=== PATIENT | male | born 1990 | race Caucasian/White ===

== ENCOUNTER 2020-05-09 15:56 | Emergency (ER) | payer SELFPAY ==
--- NOTE | 2020-05-09 | CTR_ITS ---
PROCEDURE INFORMATION: Exam: CT Chest Without Contrast; Diagnostic Exam date and time: 05/09/2020 4:55 PM Age: 30 years old Clinical indication: Injury or trauma; Fall; Generalized; Blunt trauma (contusions or hematomas); Additional info: Fall 15 ft TECHNIQUE: Imaging protocol: Diagnostic computed tomography of the chest without contrast. Radiation optimization: All CT scans at this facility use at least one of these dose optimization techniques: automated exposure control; mA and/or kV adjustment per patient size (includes targeted exams where dose is matched to clinical indication); or iterative reconstruction. COMPARISON: CT Abdomen/Pelvis Renal [id number] 10/15/2018 10:31 PM RADIATION DOSE METRICS: Total DLP (mGy-cm): 1284.88 FINDINGS: Lungs: There is some dependent atelectasis at the right lung base. There is a small calcified granuloma in the left upper lobe. Pleural spaces: Unremarkable. No pneumothorax. No pleural effusion. Heart: Unremarkable. No cardiomegaly. No pericardial effusion. Aorta: Unremarkable. No aortic aneurysm. Lymph nodes: There is some calcified mediastinal lymph nodes in keeping with old granulomatous disease. Bones/joints: Unremarkable. No acute fracture. Soft tissues: Unremarkable. IMPRESSION: No acute findings. PROCEDURE INFORMATION: Exam: CT Abdomen And Pelvis Without Contrast Exam date and time: 05/09/2020 4:55 PM Age: 30 years old Clinical indication: Injury or trauma; Fall; Generalized; Blunt trauma (contusions or hematomas); Additional info: Fall 15 ft TECHNIQUE: Imaging protocol: Computed tomography of the abdomen and pelvis without contrast. Radiation optimization: All CT scans at this facility use at least one of these dose optimization techniques: automated exposure control; mA and/or kV adjustment per patient size (includes targeted exams where dose is matched to clinical indication); or iterative reconstruction. COMPARISON: CT Abdomen/Pelvis Renal [id number] 10/15/2018 10:31 PM RADIATION DOSE METRICS: Total DLP (mGy-cm): 1284.88 FINDINGS: Limitations: The absence of intravenous contrast lessens the sensitivity of this study for solid organ abnormalities. Liver: There is no focal abnormality within the liver. Gallbladder and bile ducts: The gallbladder is normal. Pancreas: The pancreas is normal. Spleen: The spleen is normal. Adrenal glands: The adrenal glands are normal. Kidneys and ureters: The kidneys are normal. There is no evidence of hydronephrosis. There is no evidence of renal or ureteral calcifications. Stomach and bowel: There is no evidence of colitis/diverticulitis. Appendix: Not Identified Intraperitoneal space: There is no evidence of free intraperitoneal fluid. Vasculature: The aorta is normal. Lymph nodes: Unremarkable. No enlarged lymph nodes. Urinary bladder: Unremarkable as visualized. Reproductive: Unremarkable as visualized. Bones/joints: Unremarkable. No acute fracture. Soft tissues: Unremarkable. CT/CT chest abd pel wo con IMPRESSION: No acute findings. Radiation Dose CTDIVOL = (mGy): DLP = 1284.88~1284.88 (mGy-cm)
[2020-05-09 16:28] VITALS: BP 130/80; PULSE 83; RESP 16; TEMP 36.2; O2SAT 97; BMI 21.0
--- NOTE | 2020-05-09 16:38 | CTR_ITS ---
PROCEDURE INFORMATION: Exam: CT Cervical Spine Without Contrast Exam date and time: 05/09/2020 4:43 PM Age: 30 years old Clinical indication: Injury or trauma; Fall; Blunt trauma; Additional info: 15 ft fall TECHNIQUE: Imaging protocol: Computed tomography images of the cervical spine without contrast. Axial, coronal and sagittal reformatted images were created and reviewed. Radiation optimization: All CT scans at this facility use at least one of these dose optimization techniques: automated exposure control; mA and/or kV adjustment per patient size (includes targeted exams where dose is matched to clinical indication); or iterative reconstruction. COMPARISON: CT Cervical Spine wo* [id number] 04/27/2014 9:26 PM RADIATION DOSE METRICS: Total DLP (mGy-cm): 618.16 FINDINGS: Bones/joints: Mild straightening of the normal cervical lordosis. No CT evidence of acute fracture, dislocation or subluxation. Alignment anatomic. Mild levoscoliosis. Vertebral body heights maintained. Discs/Spinal canal/Neural foramina: Intervertebral disc spaces preserved. No significant spinal canal or neural foraminal stenosis. Lungs: Grossly unremarkable. Soft tissues: Grossly unremarkable. CT/CT cervical spin wo con* [id number] IMPRESSION: 1. No CT evidence of acute cervical spine traumatic injury. 2. Additional findings, as above. Radiation Dose CTDIVOL = (mGy): DLP = 618.16 (mGy-cm)
--- NOTE | 2020-05-09 16:38 | CTR_ITS ---
PROCEDURE INFORMATION: Exam: CT Head Without Contrast Exam date and time: 05/09/2020 4:43 PM Age: 30 years old Clinical indication: Injury or trauma; Fall; Blunt trauma (contusions or hematomas); Without loss of consciousness; Additional info: Trauma; 15 ft fall TECHNIQUE: Imaging protocol: Computed tomography of the head without contrast. Axial, coronal and sagittal reformatted images were created and reviewed. Radiation optimization: All CT scans at this facility use at least one of these dose optimization techniques: automated exposure control; mA and/or kV adjustment per patient size (includes targeted exams where dose is matched to clinical indication); or iterative reconstruction. COMPARISON: CT head wo con* [id number] 04/27/2014 9:22 PM RADIATION DOSE METRICS: Total DLP (mGy-cm): 891.24 FINDINGS: Brain: No CT evidence of acute intracranial hemorrhage or acute territorial infarction. No significant mass effect or midline shift. Basal cisterns patent. Cerebral ventricles: Normal in size and configuration. Bones/joints: No acute osseous abnormality. Paranasal sinuses: Minimal ethmoid mucosal thickening. Mastoid air cells: Grossly unremarkable. Soft tissues: Grossly unremarkable. CT/CT head wo con* [id number] IMPRESSION: 1. No CT evidence of acute intracranial pathology. 2. Additional findings, as above. Radiation Dose CTDIVOL = (mGy): DLP = 891.24 (mGy-cm)
--- NOTE | 2020-05-09 16:38 | CTR_ITS ---
PROCEDURE INFORMATION: Exam: CT Lumbar Spine Without Contrast Exam date and time: 05/09/2020 4:43 PM Age: 30 years old Clinical indication: Injury or trauma; Fall; Blunt trauma (contusions or hematomas); Additional info: 15 ft fall TECHNIQUE: Imaging protocol: Computed tomography images of the lumbar spine without contrast. Radiation optimization: All CT scans at this facility use at least one of these dose optimization techniques: automated exposure control; mA and/or kV adjustment per patient size (includes targeted exams where dose is matched to clinical indication); or iterative reconstruction. COMPARISON: No relevant prior studies available. RADIATION DOSE METRICS: Total DLP (mGy-cm): 1615.39 FINDINGS: Vertebrae: No acute fracture. Normal alignment. Discs/Spinal canal/Neural foramina: No significant disc protrusion. No severe spinal canal stenosis. No significant neural foraminal narrowing. Soft tissues: Unremarkable. CT/CT lumbar spine wo con* [id number] IMPRESSION: No acute findings. Radiation Dose CTDIVOL = (mGy): DLP = 1615.39 (mGy-cm)
[2020-05-09 17:28] VITALS: BP 123/67; PULSE 80; RESP 18; O2SAT 97
--- NOTE | 2020-05-09 19:09 | ED_ITS ---
HPI - Trauma General: Chief Complaint: Trauma Stated Complaint: FELL OFF LADDER Time Seen by Provider: 05/09/20 16:53 Source: patient Mode of arrival: ambulatory Limitations: no limitations History of Present Illness: HPI narrative: 30-year-old male who fell off a ladder that was about 15 feet high. Landed on his buttocks and complains of tailbone pain. He has pain going down to his legs. He was able to ambulate though without difficulty. He also complains of some neck pain and blurry vision. He denies hitting his head or losing consciousness. MD complaint: fall Loss of Consciousness: no Location: neck and buttocks Severity: severe Context: fall Associated symptoms: Reports back pain and visual disturbances; Denies Unable to assess gait, abdominal pain, anorexia, chest pain, chills, confusion, cough, dental pain, diaphoresis, difficulty breathing, dizziness, epistaxis, fever(s), headache(s), nausea, seizures, short of breath, syncope or vomiting Review of Systems General: Reports: 10 or more systems reviewed and unremarkable except in HPI a nd below Const: Denies: fever(s), chills or diaphoresis Eyes: Denies: change in vision or blurry vision ENMT: Denies: dental pain or epistaxis Card: Denies: chest pain or syncope Resp: Denies: dyspnea, productive cough or non-productive cough GI: Denies: abdominal pain, nausea or vomiting : Denies: flank pain, dysuria, urinary frequency, urinary urgency or urinary hesitancy Musc: Reports: back pain Skin/Breast: Denies: rash, pruritus or erythema Neuro: Denies: headache(s), dizziness or confusion Endo: Denies: polyuria, polydipsia or tired all the time PFS ED PFSH: Social History (Reviewed 05/11/20 @ 11:09 by Sabrina Kenney MD, [facility] – [place]) Smoking and tobacco status: current every day smoker cigarettes Packs smoked per day: 0.5 Alcohol intake: never Substance/Drug Use: never Physical Exam Const: COMMON NORMALS: no acute distress, average body habitus, patient oriented x3, no limitations, healthy appearing, alert and well nourished HENMT: COMMON NORMALS: normocephalic, atraumatic and moist oral mucous membranes HEAD & SCALP: normocephalic and atraumatic Eye: COMMON NORMALS: Equal, round and reactive pupils present, EOMs intact bilaterally, conjunctivae normal and no scleral icterus CONJUNCTIVA: Yes conjunctivae normal PUPIL: Yes Equal, round and reactive pupils present Neck/C-Spine: COMMON NORMALS: full ROM, supple, no meningeal signs, no JVD and No carotid bruits CERVICAL SPINE: No Cervical spine tenderness Chest: COMMONS NORMALS: normal inspection of the chest and normal palpation of entire chest wall Resp: COMMON NORMALS: normal respiratory effort, No retractions, No use of accessory muscles, clear to auscultation bilaterally and percussion normal AUSCULTATION: clear to auscultation bilaterally PERCUSSION: percussion normal Cardio: COMMON NORMALS: no JVD, regular rate, regular rhythm, S1 normal heart sound present, S2 normal heart sound present, No gallops present (Cardio), No clicks present (Cardio), No murmurs present (Cardio), No rub (Cardio) and Peripheral pulses 2+ throughout RATE: regular rate RHYTHM: regular rhythm HEART SOUNDS: S1 normal heart sound present and S2 normal heart sound present PERIPHERAL PULSES: Peripheral pulses 2+ throughout GI: COMMON NORMALS: Normal to inspection, nondistended, normoactive bowel sounds present, Soft to palpation, non-tender, No hepatosplenomegaly present, no masses and no bruits PALPATION: Yes Soft to palpation and Yes No hepatosplenomegaly present : COMMON NORMALS: Yes no CVA tenderness BLADDER/KIDNEY EXAM: Yes no CVA tenderness Back/Pelvis: COMMON NORMALS: no CVA tenderness THORACIC SPINE/UPPER BACK: No thoracic spinal tenderness LUMBAR SPINE/LOWER BACK: No lumbar spinal tenderness SACRUM: no swelling and tenderness Extremity: COMMON NORMALS: normal to inspection, full ROM, capillary refill normal, no calf tenderness and no pedal edema Neuro: COMMON NORMALS: patient oriented x3 SENSORIUM/ORIENTATION: Yes alert MENINGEAL SIGNS: Yes no meningeal signs GAIT: No Unable to assess gait Skin: COMMON NORMALS: no rashes or lesions noted, no wounds, turgor normal, no jaundice, no petechiae and no mottling GENERAL SKIN EXAM: no rashes or lesions noted and turgor normal MDM - Trauma MDM Narrative: Medical decision making narrative: 30-year-old male who fell from a height of about 15 feet earlier today. He complained of tailbone pain which is still his predominant complaint. Evaluation in the ED ED is negative for acute fracture or dislocation. Negative head CT, C-spine CT, chest abdomen and pelvis CT and lumbar spine CT. He is discharged home on conservative measures. Medical Records: Attestation: I reviewed the patient's medical records. Imaging Data^: Other CT: Attestation: I personally reviewed and interpreted this imaging study as follows: Radiologist's impression: [employer] [facility] [address] [address] Scan Report Signed Patient: Lacey Clark #: [id number] : 1990Acct#:[id number] Age/Sex: 30 / MADM Date: 05/09/20 Loc: ERRoom/Bed: Attending Dr: Ordering Provider/Ordering MD: Gianna Schmid Date of Service: 05/09/20 Procedure(s): CT cervical spin wo con* [id number] Accession Number(s): [id number] Report Number: [id number] PROCEDURE INFORMATION: Exam: CT Cervical Spine Without Contrast Exam date and time: 05/09/2020 4:43 PM Age: 30 years old Clinical indication: Injury or trauma; Fall; Blunt trauma; Additional info: 15 ft fall TECHNIQUE: Imaging protocol: Computed tomography images of the cervical spine without contrast. Axial, coronal and sagittal reformatted images were created and reviewed. Radiation optimization: All CT scans at this facility use at least one of these dose optimization techniques: automated exposure control; mA and/or kV adjustment per patient size (includes targeted exams where dose is matched to clinical indication); or iterative reconstruction. COMPARISON: CT Cervical Spine wo* [id number] 04/27/2014 9:26 PM RADIATION DOSE METRICS: Total DLP (mGy-cm): 618.16 FINDINGS: Bones/joints: Mild straightening of the normal cervical lordosis. No CT evidence of acute fracture, dislocation or subluxation. Alignment anatomic. Mild levoscoliosis. Vertebral body heights maintained. Discs/Spinal canal/Neural foramina: Intervertebral disc spaces preserved. No significant spinal canal or neural foraminal stenosis. Lungs: Grossly unremarkable. Soft tissues: Grossly unremarkable. CT/CT cervical spin wo con* [id number] IMPRESSION: 1. No CT evidence of acute cervical spine traumatic injury. 2. Additional findings, as above. Radiation Dose CTDIVOL = (mGy): DLP = 618.16 (mGy-cm) Dictated By:Cuco Lambert MD Signed By:Cuco Lambertigned Date/Time:05/09/201731 DD/ [address] [facility] [address] [address] Scan Report Signed Patient: Lacey Clark #: [id number] : 1990Acct#:[id number] Age/Sex: 30 / MADM Date: 05/09/20 Loc: ERRoom/Bed: Attending Dr: Ordering Provider/Ordering MD: Gianna Shcmid Date of Service: 05/09/20 Procedure(s): CT lumbar spine wo con* [id number] Accession Number(s): [id number] Report Number: [id number] PROCEDURE INFORMATION: Exam: CT Lumbar Spine Without Contrast Exam date and time: 05/09/2020 4:43 PM Age: 30 years old Clinical indication: Injury or trauma; Fall; Blunt trauma (contusions or hematomas); Additional info: 15 ft fall TECHNIQUE: Imaging protocol: Computed tomography images of the lumbar spine without contrast. Radiation optimization: All CT scans at this facility use at least one of these dose optimization techniques: automated exposure control; mA and/or kV adjustment per patient size (includes targeted exams where dose is matched to clinical indication); or iterative reconstruction. COMPARISON: No relevant prior studies available. RADIATION DOSE METRICS: Total DLP (mGy-cm): 1615.39 FINDINGS: Vertebrae: No acute fracture. Normal alignment. Discs/Spinal canal/Neural foramina: No significant disc protrusion. No severe spinal canal stenosis. No significant neural foraminal narrowing. Soft tissues: Unremarkable. CT/CT lumbar spine wo con* [id number] IMPRESSION: No acute findings. Radiation Dose CTDIVOL = (mGy): DLP = 1615.39 (mGy-cm) Dictated By:Noe Matson Signed By:Melchor Matsonigned Date/Time:05/09/201733 DD/ 1732 CT Chest: Attestation: I personally reviewed and interpreted this imaging study as follows: Radiologist's impression: [address] [address] [address] Scan Report Signed Patient: Lacey Clark #: [id number] : 1990Acct#:[id number] Age/Sex: 30 / MADM Date: 05/09/20 Loc: ERRoom/Bed: Attending Dr: Ordering Provider/Ordering MD: Sabrina Kenney MD, [facility] [place] Date of Service: 05/09/20 Procedure(s): CT chest abd pel wo con Accession Number(s): [id number] Report Number: [id number] PROCEDURE INFORMATION: Exam: CT Chest Without Contrast; Diagnostic Exam date and time: 05/09/2020 4:55 PM Age: 30 years old Clinical indication: Injury or trauma; Fall; Generalized; Blunt trauma (contusions or hematomas); Additional info: Fall 15 ft TECHNIQUE: Imaging protocol: Diagnostic computed tomography of the chest without contrast. Radiation optimization: All CT scans at this facility use at least one of these dose optimization techniques: automated exposure control; mA and/or kV adjustment per patient size (includes targeted exams where dose is matched to clinical indication); or iterative reconstruction. COMPARISON: CT Abdomen/Pelvis Renal [id number] 10/15/2018 10:31 PM RADIATION DOSE METRICS: Total DLP (mGy-cm): 1284.88 FINDINGS: Lungs: There is some dependent atelectasis at the right lung base. There is a small calcified granuloma in the left upper lobe. Pleural spaces: Unremarkable. No pneumothorax. No pleural effusion. Heart: Unremarkable. No cardiomegaly. No pericardial effusion. Aorta: Unremarkable. No aortic aneurysm. Lymph nodes: There is some calcified mediastinal lymph nodes in keeping with old granulomatous disease. Bones/joints: Unremarkable. No acute fracture. Soft tissues: Unremarkable. IMPRESSION: No acute findings. PROCEDURE INFORMATION: Exam: CT Abdomen And Pelvis Without Contrast Exam date and time: 05/09/2020 4:55 PM Age: 30 years old Clinical indication: Injury or trauma; Fall; Generalized; Blunt trauma (contusions or hematomas); Additional info: Fall 15 ft TECHNIQUE: Imaging protocol: Computed tomography of the abdomen and pelvis without contrast. Radiation optimization: All CT scans at this facility use at least one of these dose optimization techniques: automated exposure control; mA and/or kV adjustment per patient size (includes targeted exams where dose is matched to clinical indication); or iterative reconstruction. COMPARISON: CT Abdomen/Pelvis Renal [id number] 10/15/2018 10:31 PM RADIATION DOSE METRICS: Total DLP (mGy-cm): 1284.88 FINDINGS: Limitations: The absence of intravenous contrast lessens the sensitivity of this study for solid organ abnormalities. Liver: There is no focal abnormality within the liver. Gallbladder and bile ducts: The gallbladder is normal. Pancreas: The pancreas is normal. Spleen: The spleen is normal. Adrenal glands: The adrenal glands are normal. Kidneys and ureters: The kidneys are normal. There is no evidence of hydronephrosis. There is no evidence of renal or ureteral calcifications. Stomach and bowel: There is no evidence of colitis/diverticulitis. Appendix: Not Identified Intraperitoneal space: There is no evidence of free intraperitoneal fluid. Vasculature: The aorta is normal. Lymph nodes: Unremarkable. No enlarged lymph nodes. Urinary bladder: Unremarkable as visualized. Reproductive: Unremarkable as visualized. Bones/joints: Unremarkable. No acute fracture. Soft tissues: Unremarkable. CT/CT chest abd pel wo con IMPRESSION: No acute findings. Radiation Dose CTDIVOL = (mGy): DLP = 1284.88~1284.88 (mGy-cm) Dictated By:Noe Matson Signed By:Jostin Matson Date/Time:05/09/201743 DD/ 41 CT Head: Attestation: I personally reviewed and interpreted this imaging study as follows: Radiologist's impression: [address] [place] [address] CT Scan Report Signed Patient: Lacey Clark #: [id number] : 1990Acct#:[id number] Age/Sex: 30 / MADM Date: 05/09/20 Loc: ERRoom/Bed: Attending Dr: Ordering Provider/Ordering MD: Gianna Schmid Date of Service: 05/09/20 Procedure(s): CT head wo con* [id number] Accession Number(s): [id number] Report Number: [id number] PROCEDURE INFORMATION: Exam: CT Head Without Contrast Exam date and time: 05/09/2020 4:43 PM Age: 30 years old Clinical indication: Injury or trauma; Fall; Blunt trauma (contusions or hematomas); Without loss of consciousness; Additional info: Trauma; 15 ft fall TECHNIQUE: Imaging protocol: Computed tomography of the head without contrast. Axial, coronal and sagittal reformatted images were created and reviewed. Radiation optimization: All CT scans at this facility use at least one of these dose optimization techniques: automated exposure control; mA and/or kV adjustment per patient size (includes targeted exams where dose is matched to clinical indication); or iterative reconstruction. COMPARISON: CT head wo con* [id number] 04/27/2014 9:22 PM RADIATION DOSE METRICS: Total DLP (mGy-cm): 891.24 FINDINGS: Brain: No CT evidence of acute intracranial hemorrhage or acute territorial infarction. No significant mass effect or midline shift. Basal cisterns patent. Cerebral ventricles: Normal in size and configuration. Bones/joints: No acute osseous abnormality. Paranasal sinuses: Minimal ethmoid mucosal thickening. Mastoid air cells: Grossly unremarkable. Soft tissues: Grossly unremarkable. CT/CT head wo con* [id number] IMPRESSION: 1. No CT evidence of acute intracranial pathology. 2. Additional findings, as above. Radiation Dose CTDIVOL = (mGy): DLP = 891.24 (mGy-cm) Dictated By:Cuco Lambert MD Signed By:Cuco Lambert MDSigned Date/Time:05/09/201730 DD/ 28 Discharge Plan Discharge Patient Disposition: Home Clinical Impression: Sacral pain Fall from ladder Qualifiers: Encounter type: initial encounter Qualified Code(s): W11.XXXA - Fall on and from ladder, initial encounter Condition: Stable Prescriptions: [place] 5-325 mg tablet 1 tab PO Q8H PRN (Reason: pain) Qty: 12 RF: 0 Continued cetirizine 10 mg Tablet 10 mg PO DAILY RF: 0 Discharge Orders: Discharge ED (Routine); Ordered 05/09/20 Ordered By: Sabrina Kenney Discharge Diet: Usual diet Discharge Activity: Increase activity as tolerated Patient Instructions: Fall Prevention (ED), Opioid Safety Activity Restrictions/Additional Instructions: Return for any new or worsening symptoms. Follow-up with your primary care provider within 3 days. Your pain is going to get worse over the next few days before it starts to get better. Take ibuprofen for mild to moderate pain and his pain medication for severe pain. 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
[2020-05-09 19:50] VITALS: BP 125/83; PULSE 65; RESP 18; O2SAT 98
== END 2020-05-09 19:50 | disposition home or self-care (01) ==
PROVIDERS: Emergency Provider Family Medicine
DX: M53.3 Sacrococcygeal disorders, not elsewhere classified (principal); W11.XXXA Fall on and from ladder, initial encounter; F17.210 Nicotine dependence, cigarettes, uncomplicated
CPT/HCPCS: 70450; 71250; 72125; 72131; 74176; 99283

== ENCOUNTER 2021-02-03 15:11 | Emergency (ER) | payer SELFPAY ==
[2021-02-03 15:25] VITALS: BP 127/77; PULSE 76; RESP 16; TEMP 36.9; O2SAT 99; BMI 22.5
--- NOTE | 2021-02-03 17:51 | ECG_ITS ---
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 [email or web address]
== END 2021-02-03 17:50 | disposition left against medical advice (07) ==
PROVIDERS: Emergency Provider Emergency Medicine
DX: Z53.21 Procedure and treatment not carried out due to patient leaving prior to being seen by health care provider (principal)
CPT/HCPCS: 93005; 99282

== ENCOUNTER → 2021-02-04 15:52 | Outpatient (BNVA) | payer SELFPAY | PROVIDERS: Visit Provider Registered Nurse Neonatal Intensive Care | DX: R10.9 Unspecified abdominal pain (principal); K25.3 Acute gastric ulcer without hemorrhage or perforation | CPT/HCPCS: 81000 ==

== ENCOUNTER 2021-02-06 09:34 | Emergency (ER) | payer SELFPAY ==
[2021-02-06 09:58] VITALS: BP 120/74; PULSE 62; RESP 19; TEMP 36.8; O2SAT 99; BMI 21.9
[2021-02-06 11:11] VITALS: BP 134/92; PULSE 56; RESP 12; TEMP 36.3; O2SAT 99
--- NOTE | 2021-02-06 11:19 | CT_ITS ---
WS: [id number] CT ABDOMEN PELVIS TECHNIQUE: Contrast-enhanced CT of the abdomen and pelvis with coronal and sagittal reformatted image s. CLINICAL INFORMATION: ruq abdominal pain COMPARISON: May 09, 2020 DLP: 1170.[address] scans at [facility] use at least one of these dose optimization techniques: automated e xposure control; mA and/or kV adjustment per patient size (includes targeted exams where dose is matc hed to clinical indication); or iterative reconstruction. FINDINGS: Mild diffuse fatty infiltration liver. Normal gallbladder. Normal portal vein and splenic vein. Natalia l pancreas. Normal spleen and GE junction. Lung bases are well aerated. Normal renal parenchymal enhancement. No hydronephrosis. Tiny fat-containing umbilical hernia. No herniated bowel. Mild to moderate rectosigmoid constipation. No evidence of high-grade small or obstruction. Normal appendix in the right lower quadrant. No evid ence of acute appendicitis. No free fluid in the abdomen or pelvis. Normal caliber abdominal aorta. Normal lumbar spine. CT/CT abdomen pelvis w con* [id number] IMPRESSION: 1. Normal appendix in the right lower quadrant. No evidence of acute appendici tis. 2. Mild diffuse fatty infiltration liver. Gallbladder appears normal. 3. Normal renal parenchymal enhancement. No hydronephrosis. 4. Moderate pancolonic and rectosigmoid constipation. No evidence of high-grad e small or large bowel obstruction. 5. Normal caliber abdominal aorta. 6. Tiny fat-containing umbilical hernia. No herniated bowel.
[2021-02-06 11:41] LABS: Basophils % 0.9 %; Eosinophils # 0.2 10^3/uL (0.0-0.8); Hematocrit 44.7 % (42.0-52.0); Lymphocytes % 22.4 %; Mean Corpuscular HGB Conc 33.6 g/dL (30.0-36.0); Mean Corpuscular Hemoglobin 31.4 pg (28.0-34.0); Mean Corpuscular Volume 93.7 fl (80-94); Mean Platelet Volume 10.4 fL (7.4-10.4); Monocytes # 0.4 10^3/uL (0.2-0.9); Monocytes % 8.2 %; Neutrophils # 2.79 10^3/uL (1.8-7.7); Neutrophils % 63.3 %; Nucleated Red Blood Cells % 0 %; Platelet Count 268 10^3/cmm (130-400); Red Blood Count 4.77 10^6/uL (4.1-5.3); Red Cell Distribution Width 12.1 % (12.1-15.1); White Blood Count 4.4 10^3/uL (4.0-10.0)
[2021-02-06] MEDS: ketorolac 30 mg/mL INJ IVP (11:54)
[2021-02-06] MEDS: ondansetron 2 mg/ML SDV 2 mL 4 MG IVP (11:54)
[2021-02-06] MEDS: sodium chloride 0.9% 1,000 ML 999 ML IV (11:56)
[2021-02-06 12:04] LABS: Alanine Aminotransferase 23 U/L (0-41); Albumin Level 4.6 g/dL (3.5-5.2); Alkaline Phosphatase 77 IU/L (40-130); Aspartate Amino Transferase 18 U/L (0-40); Blood Urea Nitrogen 18 mg/dL (6-20); C Reactive Protein 1.5 mg/L (0.0-4.9); Calcium 8.9 mg/dL (8.5-10.5); Carbon Dioxide 25 mmol/L (22-29); Chloride 105 mmol/L (98-107); Globulin 1.9 g/dL (1.3-4.6); Glomerular Filtration Rate 99.1 mL/min (90-130); Glucose 84 mg/dL (65-115); Lipase 19 U/L (13-60); Osmolality Calculated 297 mOsm/kg (285-295); Sodium 143 mmol/L (136-145); Total Bilirubin 0.4 mg/dL (0.15-1.2); Total Protein 6.5 g/dL (6.6-8.7)
[2021-02-06] MEDS: iodixanol 320 mg/mL 100mL Btl IV (12:18)
--- NOTE | 2021-02-06 13:18 | ED_ITS ---
HPI - Abdominal Pain General: Chief Complaint: Abdominal Pain Stated Complaint: ABD PAIN/SEEN @ [facility] [place] 11.30,SX INCREASED SINCE MED Time Seen by Provider: 02/06/21 10:58 Source: patient History of Present Illness: HPI narrative: 30-year-old male presents emergency department chief complaint having right-sided abdominal pain after eating his Thanksgiving turkey meal over week ago he reports cramping abdominal pain reports he has been having some diarrhea with this no blood in his stool reports mild nausea no emesis reports no fevers or chills. He reports that he has had no pre-existing abdominal surgery does report as a child he had a hernia repair MD elicited complaint: abdominal pain Pertinent past history: other (Diarrhea) Onset (ago): day(s) (10) Pain Consistency: intermittent and colicky Location: Diffuse, RUQ and RLQ Severity: moderate Quality: cramping Migration to: periumbilical Relieving factors: nothing Associated Symptoms: Reports anorexia, change in bowel habits, diarrhea and nausea; Denies chills and fever(s) Review of Systems General: Reports: 10 or more systems reviewed and unremarkable except in HPI and below Const: Denies: fever(s), chills, fatigue or malaise Eyes: Denies: change in vision or blurry vision Card: Denies: chest pain or palpitations Resp: Denies: dyspnea or productive cough GI: Reports: abdominal pain, nausea, diarrhea and change in bowel habits : Denies: flank pain Musc: Denies: extremity pain or extremity swelling Skin/Breast: Denies: rash or pruritus Neuro: Denies: headache(s) Psych: Denies: anxiety or depression Travis/Lymph: Denies: easy bleeding All/Imm: Denies: urticaria, throat swelling or facial swelling PFS ED PFSH: Social History Smoking and tobacco status: current every day smoker cigarettes Packs smoked per day: 0.5 Alcohol intake: never Physical Exam Narrative: EXAM NARRATIVE: Patient appears nontoxic appears in mild distress due to his pain otherwise unremarkable Const: COMMON NORMALS: no acute distress, patient oriented x3 and healthy appearing HENMT: COMMON NORMALS: normocephalic and atraumatic HEAD & SCALP: normocephalic and atraumatic Eye: COMMON NORMALS: Equal, round and reactive pupils present and EOMs intact bilaterally PUPIL: Yes Equal, round and reactive pupils present Neck/C-Spine: COMMON NORMALS: full ROM, supple and no JVD Lymph: LYMPHATIC: no lymphadenopathy noted Chest: COMMONS NORMALS: normal inspection of the chest and normal palpation of entire chest wall Resp: COMMON NORMALS: normal respiratory effort, No retractions and clear to auscultation bilaterally EFFORT & INSPECTION: Yes able to speak in complete sentences and Yes symmetric chest movement AUSCULTATION: clear to auscultation bilaterally Cardio: COMMON NORMALS: no JVD, regular rate and regular rhythm RATE: regular rate RHYTHM: regular rhythm GI: COMMON NORMALS: Normal to inspection, nondistended, normoactive bowel sounds present INSPECTION: Yes normal to inspection PALPATION: Yes Tend erness to palpation present (GI) Details: RLQ (Moderate tenderness noted to the right upper quadrant and right lower quadrant on exam negative Dae's point tenderness noted) and RUQ : COMMON NORMALS: Yes no CVA tenderness BLADDER/KIDNEY EXAM: Yes no CVA tenderness Back/Pelvis: COMMON NORMALS: no CVA tenderness Extremity: COMMON NORMALS: normal to inspection and full ROM Neuro: COMMON NORMALS: patient oriented x3, CN's II-XII intact bilaterally, moves all extremities and no focal motor deficits Psych: COMMON NORMALS: mental status grossly normal, Normal thought process present, cooperative and normal affect THOUGHT PROCESS: Normal thought process present Skin: COMMON NORMALS: no rashes or lesions noted GENERAL SKIN EXAM: no rashes or lesions noted Course ED course: Due to patient's symptoms and condition lab work imaging will be obtained we will continue to follow this lab work came back unremarkable this revealing some mild constipation patient was started on additional occasions for this advised further follow-up primary care in 2 to 3 days which was advised to return the interim if any of his symptoms persist or worse. Vital Signs: Vital signs: Vital Signs Temperature 97.3 F L 02/06/21 11:11 Pulse Rate 56 L 02/06/21 11:11 Respiratory Rate 12 02/06/21 11:11 Blood Pressure 134/92 02/06/21 11:11 Pulse Oximetry 99 02/06/21 11:11 MDM - Abdominal Pain Differential Diagnosis: Differential diagnosis abdominal pain: Likely abdominal pain, acute appendicitis, constipation and pancreatitis Medical Records: Attestation: I reviewed the patient's medical records. Lab Data: Attestation: I reviewed the patient's lab results. Labs: Lab Results 02/06/21 02/06/21 10:30 10:30 WBC 4.4 10^3/uL 10^3/ uL (4.0-10.0) RBC 4.77 10^6/uL 10^6 /uL (4.1-5.3) Hgb 15.0 g/dL g/dL (11.7-16.6) Hct 44.7 % % (42.0-52.0) MCV 93.7 fl fl (80-94) MCH 31.4 pg pg (28.0-34.0) MCHC 33.6 g/dL g/dL (30.0-36.0) RDW 12.1 % % (12.1-15.1) Plt Count 268 10^3/cmm 10^3 /cmm (130-400) MPV 10.4 fL fL (7.4-10.4) Neut % (Auto) 63.3 % % Lymph % (Auto) 22.4 % % [place] % (Auto) 8.2 % % Eos % (Auto) 5.0 % % Baso % (Auto) 0.9 % % Neut # (Auto) 2.79 10^3/uL 10^3 /uL (1.8-7.7) Lymph # (Auto) 1.0 10^3/uL 10^3/ uL (0.8-4.8) [place] # (Auto) 0.4 10^3/uL 10^3/ uL (0.2-0.9) Eos # (Auto) 0.2 10^3/uL 10^3/ uL (0.0-0.8) Baso # (Auto) 0.0 10^3/uL 10^3/ uL (0.0-0.1) Nucleated RBC % (a uto) 0 % % Nucleated RBCs # 0.0 /100WBC /100W BC Sodium 143 mmol/L mmol/L (136-145) Potassium 5.0 mmol/L mmol/L (3.5-5.1) Chloride 105 mmol/L mmol/L (98-107) Carbon Dioxide 25 mmol/L mmol/L (22-29) Anion Gap 18.0 (5-19) BUN 18 mg/dL mg/dL (6-20) Creatinine 0.9 mg/dL mg/dL (0.7-1.2) GFR Calculation 99.1 mL/min mL/mi n (90-130) Glucose 84 mg/dL mg/dL (65-115) Calculated Osmolal ity 297 mOsm/kg H mOs m/kg (285-295) Calcium 8.9 mg/dL mg/dL (8.5-10.5) Total Bilirubin 0.4 mg/dL mg/dL (0.15-1.2) AST 18 U/L U/L (0-40) ALT 23 U/L U/L (0-41) Alkaline Phosphata se 77 IU/L IU/L (40-130) C-Reactive Protein 1.5 mg/L mg/L (0.0-4.9) Total Protein 6.5 g/dL L g/dL (6.6-8.7) Albumin 4.6 g/dL g/dL (3.5-5.2) Globulin 1.9 g/dL g/dL (1.3-4.6) Lipase 19 U/L U/L (13-60) Discharge Plan Discharge Patient Disposition: Home Clinical Impression: Abdominal pain, Constipation Condition: Stable Prescriptions: New Senna-S 8.6-50 mg tablet 1 tab-cap PO DAILY Qty: 14 RF: 0 Miralax 17 gram/dose powder 17 g PO DAILY PRN (Reason: constipation) Qty: 119 RF: 0 No Action sucralfate 1 gram tablet 1 g PO BID 30 Days Qty: 60 RF: 0 pantoprazole [Protonix] 40 mg tablet,delayed release (DR/EC) 40 mg PO DAILY Qty: 30 RF: 0 Tylenol Ex Str Rapid Release 500 mg Tablet 500 mg PO Q4H PRN (Reason: Pain) RF: 0 Discharge Orders: Discharge ED (Routine); Ordered 02/06/21 Ordered By: Paulino Anderson Referrals: Dung Avalos MD [Physician] - 4-7 days (as needed ) Discharge Diet: Advance as tolerated Discharge Activity: Resume usual activity Patient Instructions: Constipation - Adult, Abdominal Pain (ED), Opioid Safety Activity Restrictions/Additional Instructions: follow-up with your primary care doctor in 2 to 3 days, take medications as pre scribed and return the interim if any of your symptoms persist or worse. Coding Level of Care Code ED Cardroom Manager for Luis Felipe Suresh
[2021-02-06 13:39] LABS: Glucose Urine UA Norm (Normal); Protein Urine 1+ (Negative); Urine Appearance Clear (CLEAR); Urine Color Yellow (Yellow); pH Urine 6.5 (5-7)
[2021-02-06 13:40] LABS: Add Urine Microscopic? YES; Bilirubin Urine 1+ (Negative); Blood Urine Neg (Negative); Ketones Urine Negative (Negative); Leukocyte Esterase Urine Trace (Negative); Nitrate Urine Negative (Negative); Urobilinogen Urine 1 mg/dL (Negative)
[2021-02-06 13:48] LABS: Add Urine Culture? No; Bacteria Urine TRACE /hpf; RBC Urine 0-4 /hpf (0-2); Squamous Epithelial Cell Urine 0-4 /hpf (0-5); WBC Urine 0-4 /hpf (0-5)
== END 2021-02-06 15:22 | disposition home or self-care (01) ==
PROVIDERS: Emergency Provider Emergency Medicine
DX: K59.00 Constipation, unspecified (principal); F17.210 Nicotine dependence, cigarettes, uncomplicated
CPT/HCPCS: 74177; 80053; 81001; 83690; 85025; 86140; 96361; 96374; 96375; 99284; 99291; J1885; J2405; J7030; Q9967

== ENCOUNTER 2021-03-30 02:44 | Emergency (ER) | payer SELFPAY ==
[2021-03-30] VITALS (8 sets, daily range): BP systolic 106–138; BP diastolic 67–77; PULSE 74–137; RESP 16–24; TEMP 38.4; O2SAT 88–96; BMI 20.1
--- NOTE | 2021-03-30 03:05 | W.ED.COVID ---
HPI - COVID General: Chief Complaint: Shortness of Breath/Dyspnea Stated Complaint: Fever\SOb\Chest Pain Covid Symptoms Time Seen by Provider: 03/30/21 03:03 Triage information: No fever, cough or shortness of breath. No known COVID + exposure last 14 days History of Present Illness: HPI Narrative: 30-year-old male presents with fever, chills, chest discomfort, cough, and shortness of breath. He says his symptoms started yesterday. He has had 2 COVID-19 vaccinations, the last one on 02/18. No long car trips. Chest hurts worse with deep breathing. No definite contacts. He has congestion, headache as well. COVID 19 common symptoms: positive fever(s), chills, cough, dyspnea, fatigue, body aches, headache(s), nasal congestion and nausea; negative vomiting COVID 19 other sytmptoms: positive chest pain Onset (ago): hour(s) COVID Results: SARS-CoV-2 (PCR) Not detected (NOT DETECT) 03/30/21 03:21 03/30/21 Coronavirus Type 229E (PCR) Not detected (NOT DETECT) 03/30/21 03:21 03/30/21 Review of Systems Const: Reports: fever(s), chills, body aches and fatigue ENMT: Reports: nasal congestion Card: Reports: chest pain Resp: Reports: dyspnea GI: Reports: nausea; Denies: vomiting Neuro: Reports: headache(s) PFS ED PFSH: Social History Smoking and tobacco status: current every day smoker cigarettes Packs smoked per day: 0.5 Alcohol intake: never Physical Exam Const: GENERAL APPEARANCE: cooperative, in distress (mild) and ill appearing HENMT: COMMON NORMALS: normocephalic and atraumatic HEAD & SCALP: normocephalic and atraumatic Eye: COMMON NORMALS: Equal, round and reactive pupils present and EOMs intact bilaterally PUPIL: Yes Equal, round and reactive pupils present Chest: COMMONS NORMALS: normal inspection of the chest Resp: COMMON NORMALS: clear to auscultation bilaterally EFFORT & INSPECTION: Yes tachypneic and Yes uses accessory muscles AUSCULTATION: clear to auscultation bilaterally Cardio: COMMON NORMALS: regular rhythm RATE: tachycardic RHYTHM: regular rhythm GI: COMMON NORMALS: Normal to inspection, nondistended, normoactive bowel sounds present and Soft to palpation PALPATION: Yes Soft to palpation Neuro: ANNEMARIE COMA SCALE: document GCS findings [place] coma scale eye opening: Spontaneous [place] coma scale verbal response: Orientated Annemarie coma scale motor response: Obey commands Annemarie coma scale total score: 15 Course Vital Signs: Vital signs: Vital Signs Temperature 101.1 F H 03/30/21 02:52 Pulse Rate 74 03/30/21 06:37 Respiratory Rate 16 03/30/21 06:37 Blood Pressure 106/67 03/30/21 06:37 Pulse Oximetry 96 03/30/21 06:37 MDM - COVID MDM Narrative: Medical decision making narrative: Patient presents hypoxic, tachycardic. Hemoglobin is 14. White blood cell count is 10. Bicarbonate is 21. D-dimer is minimally elevated at 0.7. With oxygen therapy, saturations are 96% on 3 L. Blood pressure is normal 114/78. Heart rate is down to 83. Respiratory rate down to 19. COVID-19 PCR is negative. Interestingly he is positive for parainfluenza virus type III. CTA shows no pulmonary embolus, but bilateral perihilar infiltrates consistent with viral pneumonia. In the meantime, he has been given Rocephin and Zithromax. He has had a breathing treatment with some improvement. He will be allowed home, with home O2 if he fails his walk study. Lab Data: Labs: Lab Results 03/30/21 03/30/21 03/30/21 03:06 03:06 03:06 WBC 10.1 10^3/uL H 10 ^3/uL (4.0-10.0) RBC 4.53 10^6/uL 10^6 /uL (4.1-5.3) Hgb 14.0 g/dL g/dL (11.7-16.6) Hct 41.4 % L % (42.0-52.0) MCV 91.4 fl fl (80-94) MCH 30.9 pg pg (28.0-34.0) MCHC 33.8 g/dL g/dL (30.0-36.0) RDW 12.6 % % (12.1-15.1) Plt Count 248 10^3/cmm 10^3 /cmm (130-400) MPV 9.6 fL fL (7.4-10.4) Neut % (Auto) 87.0 % % Lymph % (Auto) 7.4 % % [place] % (Auto) 4.6 % % Eos % (Auto) 0.6 % % Baso % (Auto) 0.2 % % Neut # (Auto) 8.76 10^3/uL H 10 ^3/uL (1.8-7.7) Lymph # (Auto) 0.8 10^3/uL 10^3/ uL (0.8-4.8) [place] # (Auto) 0.5 10^3/uL 10^3/ uL (0.2-0.9) Eos # (Auto) 0.1 10^3/uL 10^3/ uL (0.0-0.8) Baso # (Auto) 0.0 10^3/uL 10^3/ uL (0.0-0.1) Nucleated RBC % (a uto) 0 % % Nucleated RBCs # 0.0 /100WBC /100W BC D-Dimer 0.72 ug/mIFEU H u g/mIFEU (0-0.59) Specimen Type Sample Site ABG pH ABG pCO2 ABG pO2 ABG HCO3 ABG Base Excess [place] Test Hematocrit O2 Delivery Device O2 Liters/Min Want Ad Receiver ID Sodium 135 mmol/L L mmol /L (136-145) Potassium 4.4 mmol/L mmol/L (3.5-5.1) Chloride 99 mmol/L mmol/L (98-107) Carbon Dioxide 21 mmol/L L mmol/ L (22-29) Anion Gap 19.4 H (5-19) BUN 16 mg/dL mg/dL (6-20) Creatinine 1.0 mg/dL mg/dL (0.7-1.2) GFR Calculation 87.7 mL/min L mL/ min (90-130) Glucose 119 mg/dL H mg/dL (65-115) Calculated Osmolal ity 282 mOsm/kg L mOs m/kg (285-295) Lactic Acid Calcium 8.4 mg/dL L mg/dL (8.5-10.5) Total Bilirubin 0.3 mg/dL mg/dL (0.15-1.2) AST 56 U/L H U/L (0-40) ALT 47 U/L H U/L (0-41) Alkaline Phosphata se 134 IU/L H IU/L (40-130) Troponin T Gen 5 n g/L C-Reactive Protein 12.0 mg/L H mg/L (0.0-4.9) NT-Pro-B Natriuret Pep 5 pg/mL pg/mL (0-125) Total Protein 6.8 g/dL g/dL (6.6-8.7) Albumin 4.2 g/dL g/dL (3.5-5.2) Globulin 2.6 g/dL g/dL (1.3-4.6) Procalcitonin 0.17 ng/mL ng/mL (0-0.5) Coronavirus 229E ( PCR) Parainfluenza 1 (P CR) Parainfluenza 2 (P CR) Parainfluenza 3 (P CR) Parainfluenza 4 (P CR) SARS-CoV-2 (PCR) 03/30/21 03/30/21 03/30/21 03:06 03:06 03:18 WBC RBC Hgb Hct MCV MCH MCHC RDW Plt Count MPV Neut % (Auto) Lymph % (Auto) [place] % (Auto) Eos % (Auto) Baso % (Auto) Neut # (Auto) Lymph # (Auto) [place] # (Auto) Eos # (Auto) Baso # (Auto) Nucleated RBC % (a uto) Nucleated RBCs # D-Dimer Specimen Type Arterial Sample Site Radial, left ABG pH 7.48 H (7.35-7.45) ABG pCO2 35.4 mmHg mmHg (35-45) ABG pO2 68.1 mmHg L mmHg (80.0-100.0) ABG HCO3 26.1 mmol/L H mmo l/L (22-26) ABG Base Excess 2.7 mmol/L H mmol /L (-2.0-2.0) [place] Test Pos Hematocrit 42.1 % % (42-52) O2 Delivery Device Nc O2 Liters/Min 3.0 % % Want Ad Receiver ID Buttr Sodium Potassium Chloride Carbon Dioxide Anion Gap BUN Creatinine GFR Calculation Glucose Calculated Osmolal ity Lactic Acid 1.0 mmol/L mmol/L (0.5-2.2) Calcium Total Bilirubin AST ALT Alkaline Phosphata se Troponin T Gen 5 n g/L 6 ng/L ng/L (0-15) C-Reactive Protein NT-Pro-B Natriuret Pep Total Protein Albumin Globulin Procalcitonin Coronavirus 229E ( PCR) Parainfluenza 1 (P CR) Parainfluenza 2 (P CR) Parainfluenza 3 (P CR) Parainfluenza 4 (P CR) SARS-CoV-2 (PCR) 03/30/21 03/30/21 03:21 05:41 WBC RBC Hgb Hct MCV MCH MCHC RDW Plt Count MPV Neut % (Auto) Lymph % (Auto) [place] % (Auto) Eos % (Auto) Baso % (Auto) Neut # (Auto) Lymph # (Auto) [place] # (Auto) Eos # (Auto) Baso # (Auto) Nucleated RBC % (a uto) Nucleated RBCs # D-Dimer Specimen Type Sample Site ABG pH ABG pCO2 ABG pO2 ABG HCO3 ABG Base Excess [place] Test Hematocrit O2 Delivery Device O2 Liters/Min Want Ad Receiver ID Sodium Potassium Chloride Carbon Dioxide Anion Gap BUN Creatinine GFR Calculation Glucose Calculated Osmolal ity Lactic Acid Calcium Total Bilirubin AST ALT Alkaline Phosphata se Troponin T Gen 5 n g/L C-Reactive Protein NT-Pro-B Natriuret Pep Total Protein Albumin Globulin Procalcitonin Coronavirus 229E ( PCR) Not detected (NOT DETECT) Parainfluenza 1 (P CR) Not detected (NOT DETECT) Parainfluenza 2 (P CR) Not detected (NOT DETECT) Parainfluenza 3 (P CR) Detected A (NOT DETECT) Parainfluenza 4 (P CR) Not detected (NOT DETECT) SARS-CoV-2 (PCR) Not detected (NOT DETECT) COVID Results: SARS-CoV-2 (PCR) Not detected (NOT DETECT) 03/30/21 03:21 03/30/21 Coronavirus Type 229E (PCR) Not detected (NOT DETECT) 03/30/21 03:21 03/30/21 Discharge Plan Discharge Patient Disposition: Home Clinical Impression: Pneumonia Qualifiers: Pneumonia type: due to unspecified organism Laterality: bilateral Lung location: unspecified part of lung Qualified Code(s): J18.9 - Pneumonia, unspecified organism Condition: Stable Prescriptions: New doxycycline hyclate 100 mg tablet 100 mg PO BID 7 Days Qty: 14 RF: 0 prednisone 20 mg tablet 40 mg PO DAILY Qty: 10 RF: 0 albuterol sulfate 90 mcg/actuation HFA aerosol inhaler 2 inh inhalation Q4H PRN (Reason: shortness of breath or wheezing) Qty: 6.7 RF: 1 No Action sucralfate 1 gram tablet 1 g PO BID 30 Days Qty: 60 RF: 0 pantoprazole [Protonix] 40 mg tablet,delayed release (DR/EC) 40 mg PO DAILY Qty: 30 RF: 0 Tylenol Ex Str Rapid Release 500 mg Tablet 500 mg PO Q4H PRN (Reason: Pain) RF: 0 Senna-S 8.6-50 mg tablet 1 tab-cap PO DAILY Qty: 14 RF: 0 Miralax 17 gram/dose powder 17 g PO DAILY PRN (Reason: constipation) Qty: 119 RF: 0 Discharge Orders: Discharge ED (Routine); Ordered 03/30/21 Ordered By: Bobby Alegria Other Ambulatory Orders: DME: Oxygen (Order) Location: None Selected Ordered By: Bobby Alegria Patient Instructions: Viral Pneumonia (ED) Activity Restrictions/Additional Instructions: You have bilateral pneumonia due to parainfluenza virus. Nonetheless, you will be covered with antibiotics. Other medications as directed. Use the inhaler every 4 hours while awake for the next 48 hours, then as needed. Return for inability to control fever, worsening shortness of breath despite treatment, worsening chest pain despite treatment, other concerning symptoms. Coding Level of Care Code ED Real Estate Financial Analyst for Luis Felipe Fwmehul Exam Comprehensive
--- NOTE | 2021-03-30 03:13 | XRR_ITS ---
PROCEDURE INFORMATION: Exam: XR Chest Exam date and time: 03/30/2021 3:13 AM Age: 30 years old Clinical indication: Pain; Dyspnea; On breathing; Additional info: Cp SOB TECHNIQUE: Imaging protocol: XR of the chest. Views: 1 view. COMPARISON: CT chest abd pel wo con 05/09/2020 5:27 PM FINDINGS: Lungs: There increased peribronchial markings present bilaterally. Some strandy opacities are seen in the lower hemithoraces findings that may represent mild bilateral bronchitis and basilar atelectasis. Superimposed bilateral basilar pneumonitis cannot be entirely excluded. Pleural spaces: Unremarkable. No pleural effusion. No pneumothorax. Heart/Mediastinum: Unremarkable. No cardiomegaly. Bones/joints: Unremarkable. XR/XR chest 1V portable [id number] IMPRESSION: Probable bilateral bronchitis and bilateral basilar atelectasis although superimposed basilar pneumonitis cannot be excluded.
--- NOTE | 2021-03-30 03:13 | ECG_ITS ---
[facility] Test Date: 2021-03-30 Pat Name: Lacey Clark Department: Room: Gender: Male Forging Operator: : 1990 Requested By: Bobby Razo Order Number: [id number] Kasi MD: Jonna Soria M.D. Measurements Intervals [place] Rate: 125 P: 77 MI: 138 QRS: 102 QRSD: 92 T: 61 QT: 286 QTc: 413 Interpretive Statements SINUS TACHYCARDIA RIGHT AXIS DEVIATION [QRS AXIS > 100] INTERPRETATION BASED ON A DEFAULT AGE OF 40 YEARS Compared to ECG 02/03/2021 15:23:45 Right-axis deviation now present Sinus rhythm no longer present Electronically Signed On 03-30-2021 20:04:06 EXTRACTOR OPERATOR SOLVENT PROCESS by Jonna Soria M.D. [id number]
[2021-03-30 03:19] LABS: Basophils % 0.2 %; Eosinophils # 0.1 10^3/uL (0.0-0.8); Eosinophils % 0.6 %; Hematocrit 41.4 % (42.0-52.0); Lymphocytes # 0.8 10^3/uL (0.8-4.8); Lymphocytes % 7.4 %; Mean Corpuscular HGB Conc 33.8 g/dL (30.0-36.0); Mean Corpuscular Hemoglobin 30.9 pg (28.0-34.0); Mean Corpuscular Volume 91.4 fl (80-94); Mean Platelet Volume 9.6 fL (7.4-10.4); Monocytes # 0.5 10^3/uL (0.2-0.9); Monocytes % 4.6 %; Neutrophils # 8.76 10^3/uL (1.8-7.7); Nucleated Red Blood Cells % 0 %; Platelet Count 248 10^3/cmm (130-400); Red Blood Count 4.53 10^6/uL (4.1-5.3); Red Cell Distribution Width 12.6 % (12.1-15.1); White Blood Count 10.1 10^3/uL (4.0-10.0)
[2021-03-30] MEDS: dexamethasone 4 mg/mL INJ 6 MG IVP (03:21)
[2021-03-30 03:27] LABS: D Dimer 0.72 ug/mIFEU (0-0.59)
[2021-03-30 03:29] LABS: ABG PCO2 35.4 mmHg (35-45); ABG PH Result 7.48 (7.35-7.45); Arterial Blood Gas Hematocrit 42.1 % (42-52); Base Excess ABG 2.7 mmol/L (-2.0-2.0); Blood Gas Allen Test Pos; Blood Gas Sample Site Radial, left; Blood Gas Sample Type Arterial; HCO3 ABG 26.1 mmol/L (22-26); Oxygen Device NC; PO2 ABG 68.1 mmHg (80.0-100.0)
[2021-03-30 03:33] LABS: Troponin T (5th) Once 6 ng/L (0-15)
[2021-03-30 03:40] LABS: NT Pro B Type Natriuretic Pept 5 pg/mL (0-125); Procalcitonin 0.17 ng/mL (0-0.5)
[2021-03-30 03:51] LABS: Alanine Aminotransferase 47 U/L (0-41); Albumin Level 4.2 g/dL (3.5-5.2); Alkaline Phosphatase 134 IU/L (40-130); Anion Gap 19.4 (5-19); Aspartate Amino Transferase 56 U/L (0-40); Blood Urea Nitrogen 16 mg/dL (6-20); Calcium 8.4 mg/dL (8.5-10.5); Carbon Dioxide 21 mmol/L (22-29); Chloride 99 mmol/L (98-107); Globulin 2.6 g/dL (1.3-4.6); Glomerular Filtration Rate 87.7 mL/min (90-130); Glucose 119 mg/dL (65-115); Osmolality Calculated 282 mOsm/kg (285-295); Potassium 4.4 mmol/L (3.5-5.1); Sodium 135 mmol/L (136-145); Total Bilirubin 0.3 mg/dL (0.15-1.2); Total Protein 6.8 g/dL (6.6-8.7)
--- NOTE | 2021-03-30 04:01 | CTR_ITS ---
PROCEDURE INFORMATION: Exam: CTA Chest With Contrast Exam date and time: 03/30/2021 4:01 AM Age: 30 years old Clinical indication: Pain; Dyspnea; On breathing; Additional info: Chest pain TECHNIQUE: Imaging protocol: Computed tomographic angiography of the chest with contrast. 3D rendering (Not supervised by radiologist): MIP and/or 3D reconstructed images were created by the technologist. Radiation optimization: All CT scans at this facility use at least one of these dose optimization techniques: automated exposure control; mA and/or kV adjustment per patient size (includes targeted exams where dose is matched to clinical indication); or iterative reconstruction. Contrast material: OMNI 350; Contrast volume: 95 ml; Contrast route: INTRAVENOUS (IV); COMPARISON: CT chest abd pel wo con 05/09/2020 5:27 PM RADIATION DOSE METRICS: Total DLP (mGy-cm): 591.53 FINDINGS: Pulmonary arteries: Normal. No pulmonary emboli. Aorta: Unremarkable. No aortic aneurysm. No aortic dissection. Lungs: There are patchy areas of consolidation seen in the right infrahilar region and within the right middle lobe, findings that may represent atelectasis although pneumonia cannot be excluded. A patchy opacity is also seen in the left lung base and left infrahilar region possibly representing atelectasis versus infiltrate as well. Pleural spaces: Unremarkable. No pneumothorax. No pleural effusion. Heart: Unremarkable. No cardiomegaly. No pericardial effusion. Lymph nodes: Unremarkable. No enlarged lymph nodes. Bones/joints: Unremarkable. No acute fracture. Soft tissues: Unremarkable. CT/CT angio chest PE [facility] [id number] IMPRESSION: Patchy areas of consolidation are seen in the infrahilar regions bilaterally, right more prominent than left as well as within the right middle lobe left lower lobe, findings that may represent atelectasis although a patchy bilateral pneumonia cannot be excluded.
[2021-03-30] MEDS: morphine 4 mg/mL SDV 1 mL IVP (04:02)
[2021-03-30] MEDS: acetaminophen 500 mg Tablet 1000 MG PO (04:02)
[2021-03-30] MEDS: ondansetron 2 mg/ML SDV 2 mL 4 MG IVP (04:03)
[2021-03-30] MEDS: iohexol 350 mg/mL 100 mL Btl IV (04:21)
[2021-03-30] MEDS: cefTRIAXone 1,000 MG in sodium chloride 0.9% (plus) 50 ML 100 MG IV (05:23)
[2021-03-30 05:40] LABS: Adenovirus Not Detected (NOT DETECT); Chlamydia Pneumoniae Not Detected (NOT DETECT); Coronavirus 229E,HKU1,NL63,OC4 Not Detected (NOT DETECT); Human Metapneumovirus Not Detected (NOT DETECT); Human Rhinovirus/Enterovirus Not Detected (NOT DETECT); Influenza A Not Detected (NOT DETECT); Influenza A H1 Not Detected (NOT DETECT); Influenza A H1-2009 Not Detected (NOT DETECT); Influenza A H3 Not Detected (NOT DETECT); Influenza B Not Detected (NOT DETECT); Mycoplasma Pneumoniae Not Detected (NOT DETECT); Parainfluenza Virus Type 1 Not Detected (NOT DETECT); Parainfluenza Virus Type 2 Not Detected (NOT DETECT); Parainfluenza Virus Type 3 Detected (NOT DETECT); Parainfluenza Virus Type 4 Not Detected (NOT DETECT); Respiratory Syncytial Virus A Not Detected (NOT DETECT); Respiratory Syncytial Virus B Not Detected (NOT DETECT); SARS-COV-2 Not Detected (NOT DETECT)
[2021-03-30 05:41] LABS: Parainfluenza Virus Type 1 Not Detected (NOT DETECT); Parainfluenza Virus Type 2 Not Detected (NOT DETECT); Parainfluenza Virus Type 3 Detected (NOT DETECT); Parainfluenza Virus Type 4 Not Detected (NOT DETECT); Results from Genmark
[2021-03-30] MEDS: azithromycin 500 MG in sodium chloride 0.9% 250 ML 250 MG IV (06:04)
[2021-03-30] MEDS: ipratropium-albuterol 3 mL Neb INHALATION (06:08)
--- NOTE | 2021-03-30 07:25 | PC.NURSE ---
while at doorway pt is in nad. pt is awake alert and answering questions appropriately. pt denies any further needs at this time.
[2021-04-03 10:09] LABS: Acinetobacter baumannii Not Detected (NOT DETECT); Bacteroides fragilis Not Detected (NOT DETECT); Citrobacter Not Detected (NOT DETECT); Cronobacter sakazakii Not Detected (NOT DETECT); Enterobacter cloacae complex Not Detected (NOT DETECT); Enterobacter non cloacae Not Detected (NOT DETECT); Fusobacterium necrophorum Not Detected (NOT DETECT); Fusobacterium nucleatum Detected (NOT DETECT); Haemophilus influenzae Not Detected (NOT DETECT); Klebsiella pneumoniae group Not Detected (NOT DETECT); Morganella morganii Not Detected (NOT DETECT); Neisseria meningitidis Not Detected (NOT DETECT); Pan Candida Not Detected (NOT DETECT); Pan Gram-Positive Not Detected (NOT DETECT); Proteus mirabilis Not Detected (NOT DETECT); Pseudomonas aeruginosa Not Detected (NOT DETECT); Salmonella Not Detected (NOT DETECT); Serratia Not Detected (NOT DETECT); Serratia marcescens Not Detected (NOT DETECT); Stenotrophomonas maltophilia Not Detected (NOT DETECT)
[2021-04-03 10:14] LABS: CTX-M Not Detected (NOT DETECT)
== END 2021-03-30 08:21 | disposition home or self-care (01) ==
PROVIDERS: Emergency Provider Emergency Medicine
DX: J18.9 Pneumonia, unspecified organism (principal); Z20.822 Contact with and (suspected) exposure to COVID-19
CPT/HCPCS: 36600; 71045; 71275; 80053; 82803; 83605; 83880; 84145; 84484; 85025; 85378; 86140; 87040; 87150; 87205; 87631; 87635; 93005; 94640; 96365; 96367; 96375; 99284; J0456; J0696; J1100; J2270; J2405; J7050; Q9967

== ENCOUNTER 2021-10-15 09:04 | Emergency (ER) | payer MEDICAID, SELFPAY ==
[2021-10-15] VITALS (38 sets, daily range): BP systolic 111–130; BP diastolic 53–80; PULSE 55–83; RESP 10–24; TEMP 36.4; O2SAT 95–99; BMI 26.7
--- NOTE | 2021-10-15 09:18 | PC.NURSE ---
pt reports all he remembers was urinating and the woke up on the ground. Pt reports sinus issues over last few days due to allergies. Denies feeling any different immediately prior to event. Event was unwitnessed. Denies hx of similar occurrences. Was brought to ER by father.Bruising noted to left elbow. A&Ox4. Reports pain to generalized posterior neck and left arm. Decreased HUY to left elbow due to pain. Reports tingling to BLE. No facial symmetry. Denies symptoms, denies CP, nausea, dyspnea, dizziness, or lightheaded. Denies known fevers. Denies any medical history or routine medications.
--- NOTE | 2021-10-15 09:30 | W.ED.SYNCOPE ---
HPI - Syncope General: Chief Complaint: Weakness Stated Complaint: Weakness Time Seen by Provider: 10/15/21 09:14 Source: patient and family Mode of arrival: ambulatory Limitations: no limitations History of Present Illness: This patient was transported by family to the emergency department from his home. He states he was feeling his normal state of health this morning. He states he had the urge to go urinate and on the way to the bathroom his vision seemed to narrow down and go away and then he found himself on the floor. He denies any preceding headache, focal weakness etc. He denies any history of similar occurrences. He denies any sensation of palpitations etc. He states he had been up for period of time prior to this episode occurring. No history of seizure disorder. No loss of bowel or bladder control. Complains of neck and left elbow pain at this time. He states has not been recently ill. He takes no daily medications. He does smoke cigarettes but does not use alcohol or street drugs. No family history of seizure disorder. Episode was not witnessed. He eventually called family who transported him to the emergency department. Injuries sustained associated with event: neck and LUE Associated symptoms: Reports lightheadedness; Deny abdominal pain, chest pain, fever(s), headache(s), nausea or vertigo Review of Systems Const: Denies: fever(s) or chills Eyes: Denies: change in vision or blurry vision ENMT: Denies: throat pain, odynophagia, change in hearing or disequilibrium Card: Reports: lightheadedness and syncope; Denies: chest pain, palpitations or irregular heart rhythm Resp: Denies: dyspnea, productive cough or non-productive cough GI: Denies: abdominal pain, nausea or vomiting : Denies: flank pain, difficulty urinating, dysuria or urinary frequency Musc: Reports: neck pain and extremity pain Skin/Breast: Denies: rash, pruritus or erythema Neuro: Denies: headache(s), numbness in extremities, weakness in extremities, dizziness, vertigo, Slurred speech present or seizure-like activity Psych: Denies: anxiety or depression Endo: Denies: polyuria or polydipsia PFS ED PFSH: Social History Smoking and tobacco status: current every day smoker cigarettes Packs smoked per day: 0.5 Alcohol intake: never Physical Exam Narrative: EXAM NARRATIVE: The patient is alert. He makes good eye contact and answers questions in a goal-directed normal voice. Const: COMMON NORMALS: no acute distress, average body habitus, patient oriented x3 and healthy appearing GENERAL APPEARANCE: cooperative HENMT: COMMON NORMALS: normocephalic, atraumatic, external ears normal, Normal external nose present, moist oral mucous membranes and oropharynx normal HEAD & SCALP: normocephalic and atraumatic FACE & SINUS: sinuses nontender NOSE: Normal external nose present EXTERNAL EAR: Yes external ears normal Eye: COMMON NORMALS: Equal, round and reactive pupils present, EOMs intact bilaterally and conjunctivae normal CONJUNCTIVA: Yes conjunctivae normal PUPIL: Yes Equal, round and reactive pupils present Neck/C-Spine: COMMON NORMALS: no JVD, Thyroid normal and No carotid bruits THYROID: Thyroid normal CERVICAL SPINE: No step off deformity and Yes Paracervical muscle tenderness Chest: COMMONS NORMALS: normal inspection of the chest and normal palpation of entire chest wall Resp: COMMON NORMALS: normal respiratory effort, No retractions, No use of accessory muscles and clear to auscultation bilaterally AUSCULTATION: clear to auscultation bilaterally Cardio: COMMON NORMALS: no JVD, regular rate, regular rhythm, No murmurs present (Cardio) and Peripheral pulses 2+ throughout RATE: regular rate RHYTHM: regular rhythm PERIPHERAL PULSES: Peripheral pulses 2+ throughout GI: COMMON NORMALS: Normal to inspection, nondistended, normoactive bowel sounds present, Soft to palpation, non-tender and no masses PALPATION: Yes Soft to palpation Back/Pelvis: COMMON NORMALS: straight leg raise negative bilaterally THORACIC SPINE/UPPER BACK: Yes paraspinal muscle tenderness SACROILIAC JOINTS: Yes SI joints normal Extremity: COMMON NORMALS: normal to inspection LEFT UPPER EXTREMITY: Yes elbow joint Left elbow: Yes palpation Neuro: COMMON NORMALS: patient oriented x3, moves all extremities and no focal motor deficits CRANIAL NERVES: Yes CN normal except as noted MOTOR EXAM: 5/5 motor strength present throughout Psych: COMMON NORMALS: mental status grossly normal, Normal thought process present, cooperative and normal affect THOUGHT PROCESS: Normal thought process present Skin: COMMON NORMALS: no rashes or lesions noted, no wounds and turgor normal GENERAL SKIN EXAM: no rashes or lesions noted and turgor normal Course Reevaluation(s): Reevaluation #1: Patient has a history which initially suggested syncope. He does have some associated injury that we will need to evaluate as well. Does not suggest a central nervous system event but work-up ongoing. Time: 09:40 Reevaluation #2: Patient's had a prolonged emergency department evaluation and observation. No evidence at this time to suggest a etiology to what sounds like a syncopal episode this morning. His laboratories are reassuring. He has heart rhythm has been monitored for prolonged time without any arrhythmias or other displayed abnormalities. His resting EKG did not reveal any evidence of proarrhythmia findings either. CT scan of head neck, chest x-ray, left elbow films are also reassuring. No evidence of resultant injury as a result of his syncopal episode. Orthostatic vital signs were also normal. Repeat examination reveals him to be alert. His vital signs were reviewed and very normal. No new or focal findings on repeat evaluation. Speech is normal, pupils are equal, heart rhythm is normal without murmur. I discussed current findings and the reassuring nature to patient and family. Also discussed the limitations of our current evaluation and that additional evaluation will be imperative should he have any recurrent episodes. At this point after a significant evaluation and observation in the emergency department he is stable to be discharged with outpatient follow-up. Voiced understanding of our evaluation and its limitations and implications and acknowledges same. Time: 12:02 Vital Signs: Vital signs: Vital Signs Temperature 97.6 F 10/15/21 09:08 Pulse Rate 55 L 10/15/21 11:49 Respiratory Rate 15 10/15/21 09:08 Blood Pressure 111/53 10/15/21 11:49 Pulse Oximetry 96 10/15/21 09:08 Oxygen Delivery Me thod 10/15/21 09:08 MDM - Syncope Medical Decision Making Young otherwise healthy individual with episode of syncope. No evidence at this time of intracranial hemorrhage, arrhythmia, other worrisome etiology to his syncopal episode. PERC negative. After prolonged ED observation he is remained stable and suitable for discharge with outpatient follow-up. Medical Records I reviewed the patient's medical records. Lab Data I reviewed the patient's lab results. : 10/15/21 09:38 10/15/21 09:38 Radiology Impressions Cervical Spine CT 10/15/21 09:36 IMPRESSION: Normal cervical spine. Chest X-Ray 10/15/21 09:36 IMPRESSION: No acute chest abnormality. Head CT 10/15/21 09:36 IMPRESSION: Negative head CT. Elbow X-Ray 10/15/21 09:40 IMPRESSION: No acute abnormality. Laboratory Results WBC 5.6 10^3/uL (4.0-10.0) 10/15/21 09:38 RBC 4.49 10^6/uL (4.1-5.3) 10/15/21 09:38 Hgb 15.1 g/dL (11.7-16.6) 10/15/21 09:38 Hct 44.5 % (42.0-52.0) 10/15/21 09:38 MCV 99.1 fl (80-94) H 10/15/21 09:38 MCH 33.6 pg (28.0-34.0) 10/15/21 09:38 MCHC 33.9 g/dL (30.0-36.0) 10/15/21 09:38 RDW 12.0 % (12.1-15.1) L 10/15/21 09:38 Plt Count 233 10^3/cmm (130-400) 10/15/21 09:38 MPV 9.9 fL (7.4-10.4) 10/15/21 09:38 Neut % (Auto) 73.3 % 10/15/21 09:38 Lymph % (Auto) 16.7 % 10/15/21 09:38 Josephine % (Auto) 6.3 % 10/15/21 09:38 Eos % (Auto) 3.0 % 10/15/21 09:38 Baso % (Auto) 0.5 % 10/15/21 09:38 Neut # (Auto) 4.09 10^3/uL (1.8-7.7) 10/15/21 09:38 Lymph # (Auto) 0.9 10^3/uL (0.8-4.8) 10/15/21 09:38 Josephine # (Auto) 0.4 10^3/uL (0.2-0.9) 10/15/21 09:38 Eos # (Auto) 0.2 10^3/uL (0.0-0.8) 10/15/21 09:38 Baso # (Auto) 0.0 10^3/uL (0.0-0.1) 10/15/21 09:38 Nucleated RBC % (auto) 0 % 10/15/21 09:38 Nucleated RBCs # 0.0 /100WBC 10/15/21 09:38 Sodium 144 mmol/L (136-145) 10/15/21 09:38 Potassium 4.5 mmol/L (3.5-5.1) 10/15/21 09:38 Chloride 107 mmol/L (98-107) 10/15/21 09:38 Carbon Dioxide 27 mmol/L (22-29) 10/15/21 09:38 Anion Gap 14.5 (5-19) 10/15/21 09:38 BUN 12 mg/dL (6-20) 10/15/21 09:38 Creatinine 1.1 mg/dL (0.7-1.2) 10/15/21 09:38 GFR Calculation 78.1 mL/min (90-130) L 10/15/21 09:38 Glucose 136 mg/dL (65-115) H 10/15/21 09:38 Calculated Osmolality 300 mOsm/kg (285-295) H 10/15/21 09:38 Calcium 9.1 mg/dL (8.5-10.5) 10/15/21 09:38 Total Bilirubin 0.6 mg/dL (0.15-1.2) 10/15/21 09:38 AST 25 U/L (0-40) 10/15/21 09:38 ALT 26 U/L (0-41) 10/15/21 09:38 Alkaline Phosphatase 95 IU/L (40-130) 10/15/21 09:38 Total Protein 7.1 g/dL (6.6-8.7) 10/15/21 09:38 Albumin 4.5 g/dL (3.5-5.2) 10/15/21 09:38 Globulin 2.6 g/dL (1.3-4.6) 10/15/21 09:38 EKG Data EKG 1: I personally reviewed and interpreted this EKG as follows: Interpretation: He has normal sinus rhythm. Normal intervals normal axis. No arrhythmias noted on her resting EKG. No evidence of prolonged QT, shortened MN, Brugada's or other proarrhythmic findings. No acute ST-T wave changes. Discharge Plan Discharge Patient Disposition: Home Clinical Impression: Syncope Condition: Stable Prescriptions: No Action sucralfate 1 gram tablet 1 g PO BID 30 Days Qty: 60 0RF pantoprazole [Protonix] 40 mg tablet,delayed release (DR/EC) 40 mg PO DAILY Qty: 30 0RF Tylenol Ex Str Rapid Release 500 mg Tablet 500 mg PO Q4H PRN (Reason: Pain) Senna-S 8.6-50 mg tablet 1 tab-cap PO DAILY Qty: 14 0RF Miralax 17 gram/dose powder 17 g PO DAILY PRN (Reason: constipation) Qty: 119 0RF prednisone 20 mg tablet 40 mg PO DAILY Qty: 10 0RF albuterol sulfate 90 mcg/actuation HFA aerosol inhaler 2 inh inhalation Q4H PRN (Reason: shortness of breath or wheezing) Qty: 6.7 1RF Discharge Orders: Discharge ED (Routine); Ordered 10/15/21 Ordered By: Leon Murphy Discharge Diet: Usual diet Discharge Activity: Resume usual activity Patient Instructions: Syncope (ED), Opioid Safety Activity Restrictions/Additional Instructions: Resume normal activity. Ensure that you are drinking at least 2 quarts of water or sports drinks daily in addition to your normal fluid intake. If you develop any recurrence of similar symptoms or any other concerning symptoms at any time return to this or the nearest emergency department immediately. Coding Level of Care Code ED Medical Management Trainer for Luis Felipe Fwmehul Exam Comprehensive
--- NOTE | 2021-10-15 09:36 | CT_ITS ---
WS: [id number] CT HEAD NONCONTRAST HISTORY: syncope TECHNIQUE: Contiguous axial imaging performed through the brain in 2.5 mm imaging. Bone and soft tiss ue windows. Sagittal and coronal reformats reviewed. All CT scans at [facility] use at least one of these dose optimization techniques: automated exposure control; mA and/or kV adjustment per pa tient size (includes targeted exams where dose is matched to clinical indication); or iterative recon struction. DLP: 1057.40 mGy.cm COMPARISON: 05/09/2020 No acute intracranial hemorrhage, midline shift or mass effect. No atrophy or prior infarcts or herniation. Ventricles: Normal size with no hydrocephalus. Paranasal sinuses: As visualized are clear. Mastoid air cells: Well pneumatized. Calvarium and scalp: Skull is intact with no soft tissue edema or swelling. CT/CT head wo con* [id number] IMPRESSION: Negative head CT.
--- NOTE | 2021-10-15 09:36 | XR_ITS ---
WS: [id number] XR chest 1V portable [id number] REASON FOR EXAM: syncope FINDINGS: The chest is unchanged compared to 03/30/2021. The heart and mediastinum are within normal limits. Calcified granulomatous disease bilaterally. No lung mass or significant lung nodule. No acute pulmonary parenchymal or pleural abnormality. XR/XR chest 1V portable [id number] IMPRESSION: No acute chest abnormality.
--- NOTE | 2021-10-15 09:36 | CT_ITS ---
WS: [id number] CT CERVICAL SPINE HISTORY: syncope with neck pain TECHNIQUE: Contiguous 2.5 mm axial imaging performed through the entire cervical spine. Sagittal and coronal reformats also performed. All CT scans at [facility] use at least one of these dose o ptimization techniques: automated exposure control; mA and/or kV adjustment per patient size (include s targeted exams where dose is matched to clinical indication); or iterative reconstruction. DLP: 162.81 mGy.cm COMPARISON: 05/09/2020 Normal cervical alignment. Craniocervical junction, atlantodental interval and C1-C2 alignment is nor mal. C2-C3: Normal. C3-C4: Normal. C4-C5: Normal. C5-C6: Normal. C6-C7: Normal. C7-T1: Normal. Soft tissues are normal. Lung apices are clear. CT/CT cervical spin wo con* [id number] IMPRESSION: Normal cervical spine.
--- NOTE | 2021-10-15 09:39 | ECG_ITS ---
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 Measurements Intervals [place] Rate: 70 P: 53 ND: 159 QRS: 73 QRSD: 106 T: 54 QT: 390 QTc: 421 Interpretive Statements SINUS RHYTHM INCOMPLETE RIGHT BUNDLE BRANCH BLOCK Compared to ECG 03/30/2021 02:58:38 Incomplete right bundle-branch block now present Sinus tachycardia no longer present Right-axis deviation no longer present Electronically Signed On 10-16-2021 19:08:45 CDT by Roslyn Webb M.D. [id number] f
--- NOTE | 2021-10-15 09:40 | XR_ITS ---
WS: [id number] XR elbow LT min 3V* [id number] REASON FOR EXAM: fall FINDINGS: No joint effusion identified. Joint spaces of the elbow are intact and well preserved. No fracture is identified. XR/XR elbow LT min 3V* [id number] IMPRESSION: No acute abnormality.
[2021-10-15 10:00] LABS: Basophils % 0.5 %; Eosinophils # 0.2 10^3/uL (0.0-0.8); Hematocrit 44.5 % (42.0-52.0); Hemoglobin 15.1 g/dL (11.7-16.6); Lymphocytes # 0.9 10^3/uL (0.8-4.8); Lymphocytes % 16.7 %; Mean Corpuscular HGB Conc 33.9 g/dL (30.0-36.0); Mean Corpuscular Hemoglobin 33.6 pg (28.0-34.0); Mean Corpuscular Volume 99.1 fl (80-94); Mean Platelet Volume 9.9 fL (7.4-10.4); Monocytes # 0.4 10^3/uL (0.2-0.9); Monocytes % 6.3 %; Neutrophils # 4.09 10^3/uL (1.8-7.7); Neutrophils % 73.3 %; Nucleated Red Blood Cells % 0 %; Platelet Count 233 10^3/cmm (130-400); Red Blood Count 4.49 10^6/uL (4.1-5.3); White Blood Count 5.6 10^3/uL (4.0-10.0)
[2021-10-15 10:20] LABS: Alanine Aminotransferase 26 U/L (0-41); Albumin Level 4.5 g/dL (3.5-5.2); Alkaline Phosphatase 95 IU/L (40-130); Anion Gap 14.5 (5-19); Aspartate Amino Transferase 25 U/L (0-40); Blood Urea Nitrogen 12 mg/dL (6-20); Calcium 9.1 mg/dL (8.5-10.5); Carbon Dioxide 27 mmol/L (22-29); Chloride 107 mmol/L (98-107); Globulin 2.6 g/dL (1.3-4.6); Glomerular Filtration Rate 78.1 mL/min (90-130); Glucose 136 mg/dL (65-115); Osmolality Calculated 300 mOsm/kg (285-295); Potassium 4.5 mmol/L (3.5-5.1); Sodium 144 mmol/L (136-145); Total Bilirubin 0.6 mg/dL (0.15-1.2); Total Protein 7.1 g/dL (6.6-8.7)
[2021-10-15] MEDS: sodium chloride 0.9% 500 ML IV (10:43)
== END 2021-10-15 12:32 | disposition home or self-care (01) ==
PROVIDERS: Emergency Provider Emergency Medicine
DX: R55 Syncope and collapse (principal); F17.210 Nicotine dependence, cigarettes, uncomplicated
CPT/HCPCS: 70450; 71045; 72125; 73080; 80053; 85025; 93005; 96360; 99285; J7040

== ENCOUNTER 2022-12-21 21:57 | Emergency (ER) | payer BC, MEDICAID, SELFPAY ==
[2022-12-21 21:59] VITALS: BP 135/91; PULSE 94; RESP 18; TEMP 36.9; O2SAT 98; BMI 23.5
--- NOTE | 2022-12-21 22:07 | ED_ITS ---
HPI - Wound/Laceration General: Chief Complaint: Wound/Laceration Stated Complaint: cut finger Time Seen by Provider: 12/21/22 22:07 Source: patient Mode of arrival: ambulatory Limitations: no limitations History of Present Illness: Patient presents emergency department today for evaluation treatment of laceration sustained to the Finger pad of the right index finger. Patient states that just prior to arrival he was dressing a deer and states his cousin moved the deer causing the knife to impact the patient. Patient confirms he is up-to-date on his tetanus immunization-states he got 1 2 years ago when his daughter was born. Bleeding is controlled upon arrival. Patient admits he self medicated with fireball to assist with pain prior to arrival. Review of Systems General: Reports: 10 or more systems reviewed and unremarkable except in HPI and below PFSH ED PFSH: Social History Smoking and tobacco/nicotine status: current every day tobacco/nicotine user cigarettes Packs smoked per day: 0.5 Alcohol intake: never Substance/Drug Use: never Physical Exam Const: COMMON NORMALS: no acute distress, patient oriented x3 and alert HENMT: COMMON NORMALS: normocephalic, atraumatic and hearing grossly normal bilaterally HEAD & SCALP: normocephalic and atraumatic Eye: COMMON NORMALS: Equal, round and reactive pupils present, EOMs intact bilaterally and conjunctivae normal CONJUNCTIVA: Yes conjunctivae normal PUPIL: Yes Equal, round and reactive pupils present Neck/C-Spine: COMMON NORMALS: full ROM and no JVD Lymph: LYMPHATIC: no lymphadenopathy noted Resp: COMMON NORMALS: normal respiratory effort, No retractions and No use of accessory muscles Cardio: COMMON NORMALS: no JVD and regular rate RATE: regular rate Extremity: NARRATIVE EXTREMITY EXAM: Patient has full flexion extension capabilities of the right index finger at all joints. Neuro: COMMON NORMALS: patient oriented x3 SENSORIUM/ORIENTATION: Yes alert Psych: COMMON NORMALS: mental status grossly normal, Normal thought process present, cooperative and normal affect THOUGHT PROCESS: Normal thought process present Skin: COMMON NORMALS: no rashes or lesions noted and turgor normal GENERAL SKIN EXAM: no rashes or lesions noted and turgor normal OTHER: Patient has a linear laceration approximately 0.5 cm in length noted to the lateral portion of the finger pad on the right index finger. No bleeding visible. Wound edge separation approximately 2 mm at rest. Wound edge separation with flexion of the finger joints. Procedures Laceration Laceration 1: Site: hand (Index finger pad) Side (If applicable): right Size (cm): 1 Description: linear Depth: simple, single layer Local Anesthetic: lidocaine 1% Amount of anesthesia used (mL): 2 Pre-repair: wound explored, irrigated extensively and deep structures intact Skin layer closed with: nylon Size (cm): 4-0 Number of sutures: 5 Technique: simple, interrupted Course Vital Signs: Vital signs: Vital Signs Temperature 98.5 F 12/21/22 21:59 Pulse Rate 90 12/21/22 22:25 Respiratory Rate 18 12/21/22 22:25 Blood Pressure 143/82 12/21/22 22:25 Pulse Oximetry 100 12/21/22 22:25 Oxygen Delivery Me thod Room Air 12/21/22 22:25 MDM - Wound/Laceration Medical Decision Making Patient's wound was able to be repaired here in the emergency department. Anesthesia was achieved with injection of lidocaine and wound was cleaned using Betadine and sterile saline. Patient's wound was repaired using 5, 4-0 nylon sutures in a simple interrupted fashion. 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 Signs of cellulitis discussed with instructions to be seen and reevaluated for acute concerns. Sutures are to be removed in 10 days by primary care, urgent care, or back here in the emergency department. Patient verbalizes understanding and agreement to treatment plan. No radiology studies performed this visit Discharge Plan Discharge Patient Disposition: Home Clinical Impression: Laceration of index finger of right hand without complication Condition: Stable Prescriptions: No Action sucralfate 1 gram tablet 1 g PO BID 30 Days Qty: 60 0RF pantoprazole [Protonix] 40 mg tablet,delayed release (DR/EC) 40 mg PO DAILY Qty: 30 0RF Tylenol Ex Str Rapid Release 500 mg Tablet 500 mg PO Q4H PRN (Reason: Pain) Senna-S 8.6-50 mg tablet 1 tab-cap PO DAILY Qty: 14 0RF Miralax 17 gram/dose powder 17 g PO DAILY PRN (Reason: constipation) Qty: 119 0RF prednisone 20 mg tablet 40 mg PO DAILY Qty: 10 0RF albuterol sulfate 90 mcg/actuation HFA aerosol inhaler 2 inh inhalation Q4H PRN (Reason: shortness of breath or wheezing) Qty: 6.7 1RF Discharge Orders: Discharge ED (Routine); Ordered 12/21/22 Ordered By: Jossy Perez Referrals: Olivier Delgado MD [Primary Care Provider] - Discharge Diet: Usual diet Discharge Activity: Increase activity as tolerated Patient Instructions: Care For Your Stitches (ED) Activity Restrictions/Additional Instructions: The laceration to your finger required repair with 5 stitches. These need to be removed in approximately 10 days by your primary care doctor, urgent care, or back here in the emergency department. Wash the wound twice a day with warm water and mild soap. Be extremely careful not to let it catch or snagged on linens or clothing items. I do recommend keeping it covered with bandaging at all times to prevent it getting wet or soiled. If the wound becomes wet or soiled or the bandaging becomes compromised, I do recommend washing the wound and reapplying clean bandaging. If for any reason you have sudden swelling at the wound site, sudden redness, or draining of thick green or yellow material you need to be seen and reevaluated. Coding Level of Care Code ED Centrifuge Separator Operator for Luis Felipe Suresh
[2022-12-21 22:25] VITALS: BP 143/82; PULSE 90; RESP 18; O2SAT 100
[2022-12-21] MEDS: lidocaine 1% INJ 10 mL (per mL) 3 ML INTRADERMA (22:44)
[2022-12-21 23:19] VITALS: BP 135/84; PULSE 87; RESP 18; O2SAT 96
== END 2022-12-21 23:20 | disposition home or self-care (01) ==
PROVIDERS: Emergency Provider Physician Assistant; PCP Family Medicine
DX: S61.210A Laceration without foreign body of right index finger without damage to nail, initial encounter (principal); F17.210 Nicotine dependence, cigarettes, uncomplicated; W26.0XXA Contact with knife, initial encounter
CPT/HCPCS: 12001; 99282

== ENCOUNTER → 2024-05-14 12:29 | Outpatient (BNVA) | payer BC, SELFPAY | PROVIDERS: PCP Family Medicine; Visit Provider Nurse Practitioner | DX: M25.531 Pain in right wrist (principal) | CPT/HCPCS: 73110 ==

== ENCOUNTER 2024-05-17 13:49 | Emergency (ER) | payer BC, MEDICAID, SELFPAY ==
[2024-05-17 13:53] VITALS: BP 137/80; PULSE 86; RESP 14; TEMP 36.6; O2SAT 98
--- NOTE | 2024-05-17 14:17 | XR_ITS ---
WS: [id number] Right wrist, 3 views, 05/17/2024 Clinical Data: injury Comparison: None. Findings: No fractures or dislocations are seen. The carpal bones are intact. There is no soft tissue swelling. The distal radius and ulna are not remarkable. XR/XR wrist RT min 3V* [id number] Impression: Negative right wrist.
--- NOTE | 2024-05-17 14:17 | XR_ITS ---
WS: [id number] Right forearm, AP and lateral views, 05/17/2024 Clinical Data: injury Comparison: None. Findings: No fractures or dislocations are seen. The soft tissues are normal. The visualized right wrist and elbow show no obvious abnormalities. XR/XR forearm RT 2V [id number] Impression: Negative for right forearm fracture.
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
[2024-05-17 15:43] VITALS: BP 142/80; PULSE 79; O2SAT 99
== END 2024-05-17 15:43 | disposition home or self-care (01) ==
PROVIDERS: Emergency Provider Physician Assistant; PCP Family Medicine
DX: S40.021A Contusion of right upper arm, initial encounter (principal); F17.210 Nicotine dependence, cigarettes, uncomplicated; W22.8XXA Striking against or struck by other objects, initial encounter
CPT/HCPCS: 73090; 73110; 99283

== ENCOUNTER 2024-07-03 16:42 | Inpatient (IN) | payer BC, MEDICAID, SELFPAY ==
[2024-07-03 16:43] VITALS: BP 137/77; PULSE 127; RESP 18; TEMP 37.3; O2SAT 97; BMI 23.1
--- NOTE | 2024-07-03 16:44 | ECG_ITS ---
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: : 1990 Requested By: Jennifer Reyes Order Number: [id number] Kasi MD: MILTON GONZALEZ Measurements Intervals [place] Rate: 131 P: 69 RI: 151 QRS: 97 QRSD: 101 T: 44 QT: 300 QTc: 443 Interpretive Statements SINUS TACHYCARDIA BORDERLINE RIGHT AXIS DEVIATION [QRS AXIS > 90] INCOMPLETE RIGHT BUNDLE BRANCH BLOCK [90+ ms QRS DURATION, TERMINAL R IN V1/V2, 40+ ms S IN I/aVL/V4/V5/V6] ABNORMAL RHYTHM ECG Compared to ECG 10/15/2021 09:21:38 Sinus rhythm no longer present Electronically Signed On 07-03-2024 20:57:52 CDT by MILTON GONZALEZ [id number]
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
[2024-07-03 17:19] LABS: Bilirubin Urine Negative (Negative); Blood Urine Negative (Negative); Glucose Urine UA Negative (Normal); Ketones Urine Trace (Negative); Leukocyte Esterase Urine Negative (Negative); Nitrate Urine Negative (Negative); Protein Urine 2+ (Negative); Specific Gravity, Urine 1.025 (1.005-1.030); Urine Appearance Clear (CLEAR); Urine Color Yellow (Yellow)
[2024-07-03 17:25] LABS: Add Urine Microscopic? YES; Bacteria Urine None Seen /hpf; Hyaline Casts Urine 4.52 /lpf; RBC Urine 0-2 /hpf (0-2); Squamous Epithelial Cell Urine 0-5 /hpf (0-5); WBC Urine 0-5 /hpf (0-5)
--- NOTE | 2024-07-03 17:30 | PC.NURSE ---
96 hr rights reviewed with pt @[id number] with assistance of [facility] marine safety officer Clifford Mitchell. All education reviewed at this time. Pt had no verbalized questions or concerns during rights being reviewed. Pt copy was left with pt. Water provided. Pt declined any other needs.
[2024-07-03 17:31] LABS: Amphetamines Screen Urine Positive (Negative); Barbiturates Screen Urine Negative (Negative); Benzodiazepines Screen Urine Negative (Negative); Cocaine Screen Urine Negative (Negative); Opiate Screen Urine Negative (Negative); PCP Screen Urine Negative (Negative); THC Screen Urine Negative (Negative)
[2024-07-03 17:36] LABS: Add Urine Culture? No; UA Slide Review UA Slide Review Perf
[2024-07-03 17:50] LABS: Basophils % 0.5 %; Eosinophils # 0.1 10^3/uL (0.0-0.8); Eosinophils % 1.4 %; Hematocrit 43.3 % (37-53); Lymphocytes # 0.6 10^3/uL (0.8-4.8); Lymphocytes % 9.2 %; Mean Corpuscular HGB Conc 34.2 g/dL (30-55); Mean Corpuscular Hemoglobin 32.7 pg (27-33); Mean Corpuscular Volume 95.6 fl (82-101); Mean Platelet Volume 9.9 fL (7.4-10.4); Monocytes # 0.4 10^3/uL (0.2-0.9); Monocytes % 6.2 %; Neutrophils # 5.21 10^3/uL (1.8-7.7); Neutrophils % 82.5 %; Nucleated Red Blood Cells % 0 %; Platelet Count 236 10^3/cmm (157-399); Red Blood Count 4.53 10^6/uL (3.85-5.65); Red Cell Distribution Width 13.4 % (12.1-15.1); White Blood Count 6.31 10^3/uL (3.29-11.43)
[2024-07-03 18:20] LABS: Alanine Aminotransferase 38 U/L (0-41); Albumin Level 4.5 g/dL (3.5-5.2); Alcohol Level 197 mg/dL (0-10); Alkaline Phosphatase 111 U/L (40-130); Anion Gap 18.9 (5-19); Aspartate Amino Transferase 36 U/L (0-40); Blood Urea Nitrogen 13 mg/dL (6-20); Calcium 8.9 mg/dL (8.5-10.5); Carbon Dioxide 22 mmol/L (22-29); Chloride 103 mmol/L (98-107); Creatinine Clr Calc Pharmacy 115.8414; Globulin 2.3 g/dL (1.3-4.6); Glomerular Filtration Rate 76.6 mL/min (90-130); Glucose 105 mg/dL (65-115); Osmolality Calculated 290 mOsm/kg (285-295); Potassium 3.9 mmol/L (3.5-5.1); Sodium 140 mmol/L (136-145); Thyroid Stimulating Hormone 0.75 uIU/mL (0.27-4.20); Total Bilirubin 0.3 mg/dL (0.15-1.2); Total Protein 6.8 g/dL (6.6-8.7)
[2024-07-03 18:27] LABS: Acetaminophen < 5.0 ug/mL (10-30); Salicylate < 0.3 mg/dL (3-10)
[2024-07-03 18:49] VITALS: BP 134/71; PULSE 101; RESP 18; O2SAT 98
[2024-07-03 19:57] VITALS: BP 134/71; PULSE 101; O2SAT 98
[2024-07-03 20:39] VITALS: BP 136/91; PULSE 98; RESP 18; TEMP 36.8; O2SAT 99
[2024-07-03] MEDS: thiamine 100 mg/mL 2mL SDV IM (20:57)
[2024-07-03] MEDS: LORazepam 2 mg Tablet PO (20:57)
--- NOTE | 2024-07-03 21:00 | PC.NURSE ---
CIWA SCORE PATIENT NOTED WITH VISIBLE TREMORS, INCREASED ANXIETY, AND CLAMMY PALMS. ATIVAN 2MG PO GIVEN FOR CIWA SCORE OF 11. PATIENT STATES HE HAS BEEN DRINKING EXCESSIVELY THIS PAST WEEK. WILL CONTINUE TO MONITOR.
[2024-07-03] MEDS: pregabalin 25 mg Capsule 50 MG PO (21:32)
[2024-07-03] MEDS: nicotine 2 mg Gum BUCCAL (21:35)
[2024-07-03 21:45] VITALS: BP 139/99; PULSE 81; RESP 18; O2SAT 100
--- NOTE | 2024-07-03 22:09 | PC.NURSE ---
MED FOLLOWUP PATIENT STATES FEELING LESS SHAKY, BUT CONTINUES WITH HAND NUMBNESS.
[2024-07-03 23:57] VITALS: BP 102/51; PULSE 88; RESP 18; O2SAT 98
[2024-07-04 03:54] VITALS: BP 117/63; PULSE 76; RESP 18; TEMP 36.8; O2SAT 98
[2024-07-04 08:00] VITALS: BP 120/74; PULSE 88; RESP 16; TEMP 37; O2SAT 98
[2024-07-04] MEDS: duloxetine 20 mg Capsule PO (09:17)
[2024-07-04] MEDS: multivitamin therapeutic Tablet 1 TAB PO (09:17)
[2024-07-04] MEDS: nicotine 2 mg Gum BUCCAL ×4 (09:17→20:12)
[2024-07-04] MEDS: folic acid 1 mg Tablet PO (09:17)
[2024-07-04] MEDS: pregabalin 25 mg Capsule 50 MG PO ×3 (09:17→21:18)
[2024-07-04] MEDS: thiamine 100 mg Tablet PO (09:17)
[2024-07-04 12:00] VITALS: BP 143/92; PULSE 70; RESP 16; TEMP 36.4; O2SAT 99
[2024-07-04] MEDS: nicotine 4 mg lozenge MUCOUS MEM (12:22)
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
[2024-07-04 16:00] VITALS: BP 168/88; PULSE 80; RESP 16; TEMP 37; O2SAT 98
[2024-07-04] MEDS: hyDROXYzine 25 mg Capsule 50 MG PO (17:51)
[2024-07-04 19:32] VITALS: BP 142/78; PULSE 65; RESP 18; TEMP 36.7; O2SAT 97
[2024-07-05] VITALS: BP 100/60; PULSE 60; RESP 16; O2SAT 100
[2024-07-05 04:00] VITALS: BP 101/58; PULSE 56; RESP 16; O2SAT 98
[2024-07-05 08:00] VITALS: BP 133/80; PULSE 73; RESP 16; TEMP 36.3; O2SAT 98
[2024-07-05] MEDS: nicotine 2 mg Gum BUCCAL ×6 (08:05→20:34)
[2024-07-05] MEDS: duloxetine 20 mg Capsule PO (08:30)
[2024-07-05] MEDS: multivitamin therapeutic Tablet 1 TAB PO (08:30)
[2024-07-05] MEDS: folic acid 1 mg Tablet PO (08:30)
[2024-07-05] MEDS: thiamine 100 mg Tablet PO (08:30)
[2024-07-05] MEDS: pregabalin 25 mg Capsule 50 MG PO ×3 (08:30→20:29)
[2024-07-05 12:00] VITALS: BP 174/76; PULSE 78; RESP 16; TEMP 37; O2SAT 98
--- NOTE | 2024-07-05 13:42 | P.NPUPN_ITS ---
Subjective NPU 2 Subjective: Patient presented today reporting that he is feeling fairly good and optimistic about things moving forward. He reports that he needs to get home and get back to employment and get back to taking care of his family. Endorses a plan to go to outpatient rehab at [facility] as well as some other programming that he is working with with the social work team. He denied any side effects to medication. Mental Status Exam 2 MSE Comments: This is a well-nourished well-developed white male, in hospital scrubs, with adequate grooming and eye contact. No abnormal movements, except for mild psychomotor retardation. Cooperative with exam in mild distress. Speech was mostly normal rate and volume. Mood described as better than yesterday; affect congruent and anxious. Thought process, organized. Thought content: patient denied any suicidal or ideation, patient denied paranoia and there were no delusions reported or noted, patient denied any auditory hallucinations.Attention, concentration, and memory appeared intact, but none were formally tested. He was alert and oriented times three. Insight and judgment appear limited. Impulse control is limited versus impaired. Vitals/I&O/Wt Last Vital Signs Temp 98.6 F 07/05/24 12:00 Pulse 78 07/05/24 12:00 Resp 16 07/05/24 12:00 BP 174/76 07/05/24 12:00 Pulse Ox 98 07/05/24 12:00 O2 Del Method Room Air 07/05/24 12:00 Weight last 48 hrs Weight 86.183 kg Data NPU 07/03/24 17:26 07/03/24 17:26 A&P Assessment and plan (1) Suicidal ideation: (2) Alcohol intoxication: (3) Depression: (4) Anxiety: (5) Alcohol use disorder, moderate, dependence: Plan This is a 34 -year-old, white male, with genetic loading for addiction issues, who is unknown through inpatient but known from past brief outpatient services who presents reporting depression and anxiety,and active addiction off of medication. The assessment indicates a serious alcohol addiction, with the patient acknowledging the need for help and expressing a desire to stop drinking. There is no history of psychiatric hospitalizations, but the patient has been on antidepressants prescribed by a primary care physician. The patient reports feelings of depression, characterized by low mood and feelings of helplessness, but denies any suicidal ideation or self-harm. There is also a history of substance use, including THC and past use of other drugs. The patient has a history of legal issues related to substance use. The patient is currently in a positive mood, feeling proactive about seeking treatment for alcohol addiction. 1. Restart medication. 2. Continue every 15 minute checks for safety. 3. Encourage individual, group and milieu therapy. 4. Encourage sober living treatment after discharge at the highest level care to which he is willing to commit. 5. Obtain collateral information. 6. Observe against the backdrop of 96-hour hold. 7. Tentative plan for discharge tomorrow PDMP PDMP Reviewed: Not Reviewed Involuntary Hold Information 2 Hold Status: Legal Status: 96 Hour Hold Date/Time Hold Expires: 07/07/24 @ 17:00 Attestations NPU 2 Medical Necessity Statement*: Inpatient hospitalization is medically necessary and the clinically appropriate intervention, at this time. We will monitor medications and make changes as indicated. Likely length of stay is 1-3 days. Coding Level of Care Code Acute Code for [facility] Diagnoses Suicidal ideation R45.851 Alcohol intoxication F10.929 Depression F32.A Anxiety F41.9 Alcohol use disorder, moderate, dependence F10.20
[2024-07-05 15:41] VITALS: BP 126/86; PULSE 71; RESP 16; TEMP 36.9; O2SAT 97
[2024-07-05 20:00] VITALS: BP 126/82; PULSE 74; RESP 20; TEMP 36.8; O2SAT 100
[2024-07-06] VITALS: RESP 16
[2024-07-06 04:00] VITALS: BP 112/64; PULSE 52; RESP 17; O2SAT 99
[2024-07-06 08:00] VITALS: BP 178/74; PULSE 88; RESP 16; TEMP 36.9; O2SAT 98
[2024-07-06] MEDS: folic acid 1 mg Tablet PO (08:06)
[2024-07-06] MEDS: thiamine 100 mg Tablet PO (08:06)
[2024-07-06] MEDS: nicotine 2 mg Gum BUCCAL ×3 (08:07→12:45)
[2024-07-06] MEDS: multivitamin therapeutic Tablet 1 TAB PO (08:07)
[2024-07-06] MEDS: pregabalin 25 mg Capsule 50 MG PO (08:07)
[2024-07-06] MEDS: duloxetine 20 mg Capsule PO (08:07)
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
[2024-07-06 12:15] VITALS: BP 133/81; PULSE 88; RESP 16; TEMP 36.9; O2SAT 98
--- NOTE | 2024-07-06 13:10 | PC.NURSE ---
Morning assessment During morning assessment, patient cooperative and calm. Patient denies Si, HI, AVH, depression, and anxiety. Patient stated, I feel great, ready to go home.
== END 2024-07-06 14:35 | disposition home or self-care (01) | DRG 881 ==
LOC: ER 18:48 → NP 18:56
PROVIDERS: Admitting Provider Psychiatry & Neurology Psychiatry; Emergency Provider Emergency Medicine; PCP Family Medicine; Visit Provider Psychiatry & Neurology Psychiatry
DX: F32.A Depression, unspecified (principal); R45.851 Suicidal ideations; F10.229 Alcohol dependence with intoxication, unspecified; Y90.6 Blood alcohol level of 120-199 mg/100 ml; F41.9 Anxiety disorder, unspecified; F15.90 Other stimulant use, unspecified, uncomplicated; F17.210 Nicotine dependence, cigarettes, uncomplicated
CPT/HCPCS: 36415; 80053; 80306; 80307; 81001; 84443; 85025; 93005; 96372; 97150; 97165; 99285; J3411; J9999